=== PATIENT | female | born 1975 | race Caucasian/White ===

== ENCOUNTER → 2017-04-26 09:04 | Outpatient (CLI) | payer BC, SELFPAY ==
--- NOTE | 2017-04-26 | XR_ITS ---
XR foot LT min 3V HISTORY: Left foot pain ORDERING PHYSICIAN: Melany Hanna DPM PATIENT AGE: 42 years COMPARISON: None FINDINGS: Weightbearing views are performed. There is an old healed fracture of the fifth metatarsal distally with good alignment. There is mild pes planus. No acute fracture. No lytic or blastic change or significant degenerative change. IMPRESSION: Mild pes planus with old fifth metatarsal fracture
--- NOTE | 2017-04-26 | XR_ITS ---
XR foot RT min 3V HISTORY: ITS.REASON: LEFT FOOT PAIN ORDERING PHYSICIAN: Melany Hanna DPM PATIENT AGE: 42 years COMPARISON: None FINDINGS: No fracture or dislocation. No lytic or blastic change. There is normal mineralization.. The joint spaces are well-preserved. No significant degenerative/arthritic changes. No erosive changes evident. IMPRESSION: Negative, no acute finding
== END ==
PROVIDERS: PCP Internal Medicine Adolescent Medicine; Visit Provider Podiatrist
DX: M79.672 Pain in left foot (principal)
CPT/HCPCS: 73630

== ENCOUNTER → 2018-10-30 14:54 | Outpatient (POV) | payer BC, SELFPAY | PROVIDERS: Visit Provider Dermatology | DX: Z00.00 Encounter for general adult medical examination without abnormal findings (principal) ==

== ENCOUNTER → 2019-12-31 17:35 | Outpatient (CLI) | payer BC, SELFPAY ==
[2020-01-02 13:43] LABS: Covid-19 Nasal PCR Sendout Lex NOT DETECTED
== END ==
PROVIDERS: PCP Nurse Practitioner Family; Visit Provider Nurse Practitioner Family
DX: Z20.828 Contact with and (suspected) exposure to other viral communicable diseases (principal)
CPT/HCPCS: U0004

== ENCOUNTER 2020-11-27 13:36 | Emergency (ER) | payer OTHER, SELFPAY ==
[2020-11-27 13:42] VITALS: BMI 19.3
--- NOTE | 2020-11-27 13:43 | XR_ITS ---
PROCEDURE: XR HAND LT MIN 3V CLINICAL INDICATION: INJURY Pain COMPARISON: No exams were available for comparison FINDINGS: No fracture or dislocation. No lytic or blastic change. There is normal mineralization. The joint spaces are well-preserved. No significant degenerative/arthritic changes. No erosive changes evident. Other findings:None. IMPRESSION: No acute findings. Dictated by: Gabriele Christiansen MD 11/27/2020 14:27 Gabriele Christiansen MD in [place] 11/27/2020 14:27
[2020-11-27 14:05] VITALS: BP 123/78; PULSE 68; RESP 20; TEMP 36.7; O2SAT 98; BMI 23.0
--- NOTE | 2020-11-27 14:31 | HMH.EDUTC ---
[facility] [place] Disposition Clinical Impression: Hand contusion Qualifiers: Encounter type: initial encounter Laterality: left Qualified Code(s): S60.222A - Contusion of left hand, initial encounter Disposition: Home, Self-Care Condition on Discharge: Good Instructions: Contusion, How To Perform RICE (Rest, Ice, Compress, Elevate), How to Apply an Ebenezer Wrap Additional Instructions: *RICE, Rest the extremity, Ice 15-20 minutes 3-4 times daily, Compress- wear the ebenezer wrap as discussed as much as possible to help reduce swelling and pain, Elevate the extremity when at rest *Ebenezer wrap is for support and help control swelling, use it except in the shower. Be sure that is not to tight but not to loose either *Elevate when resting *Ibuprofen every 6-8 hours as needed for pain an inflammation. If need something more can take Tylenol in between doses of Ibuprofen to help Immediately follow up with your family doctor for new or worsening of symptoms, or no noticeable improvement over the next 3-5 day Referrals: Cristine Patton APRN [Primary Care Provider] - As needed Time of Disposition: 14:36 Medical Decision Making - Keith Inquiry Pt receiving controlled substance: No Kieth was queried for this patient: No Vital Signs: 11/27/20 14:05 Temperature 98.0 F Temperature Source Temporal Artery Scan Pulse Rate [Left Brachial] 68 Respiratory Rate 20 Blood Pressure [Left Arm] 123/78 Blood Pressure Mean [Left Arm] 93 Blood Pressure Source [Left Arm] Automatic Cuff Blood Pressure Position [Left Arm] Sitting 02 Sat by Pulse Oximetry 98 Oxygen Delivery Method Room Air - Radiology Data #1 Image(s): Hand Image Reviewed: Yes I reviewed the patient's radiology image Preliminary Findings: No Fracture Seen [facility] [place] HPI - General Stated complaint: a/o fracture left hand Time Seen by Provider: 11/27/20 14:31 Mode of Arrival: Ambulatory Source of Information: Patient Limitations: No Limitations Description of Symptoms (Recalled from Triage Doc. by RN): PATIENT C/O INJURY TO LEFT HAND AFTER HITTING IT ON A METAL POLE TODAY HEENT Symptoms (Recalled from RN notes): No Resp Symptoms (Recalled from RN notes): No Skin Symptoms (Recalled from RN notes): No MS Symptoms (Recalled from RN notes): Yes Functional Status (Recalled from RN notes): WNL - History of Present Illness Provider Complaint: Patient state that she accidently hit her hand agains a metal pole on treadmill State that she immediatly noticed she had a raised bruised area on the top of her left hand State that she was worried that she may have broken it so she came in - Related Data Home Medications Medication Instructions Recorded Confirmed No Known Home Medications 05/12/19 05/12/19 Allergies Allergy/AdvReac Type Severity Reaction Status Date / Time No Known Allergies Allergy Verified 12/27/17 13:38 - Worker's Comp Is this a Worker's Comp case?: No [facility] History - Hepatitis A Screen Drug use history?: No High risk sexual behaviors?: No History of sexually transmitted infection?: No Currently employed?: No Childcare worker?: No Do you have indoor plumbing?: Yes Do you have electricity?: Yes Attestation statement:: This patient has been screened for Hepatitis A risk factors. I have reviewed the patient's past medical history: Yes Medical History: Reports:: Anxiety Denies:: Aneurysm, Arrhythmia, Asthma, Atrial Fibrillation, Cancer, Congestive Heart Failure, Chronic Obstructive Pulmonary Disease (COPD), Coronary Artery Disease, Cerebrovascular Accident, Deep Vein Thrombosis, Dementia, Diabetes Mellitus Type 1, Diabetes Mellitus Type 2, Gastroesophageal Reflux Disease(GERD), Gastrointestinal Bleed, Hyperlipidemia, Hypertension, Internal Pacemaker, Lung Disease, Kidney Stones, Migraine, MRSA, Myocardial Infarction, Osteoporosis, Peripheral Artery Disease, Pulmonary Embolism, Renal Disease, Seizures, Supraventricular Tachycardia, Transient Ischemic Attacks (TIA)
[2020-11-27 14:37] VITALS: BP 123/78; PULSE 68; RESP 20; TEMP 36.7; O2SAT 98
== END 2020-11-27 14:42 | disposition home or self-care (01) ==
PROVIDERS: Emergency Provider Nurse Practitioner; PCP Nurse Practitioner Family
DX: S60.222A Contusion of left hand, initial encounter (principal); W22.8XXA Striking against or struck by other objects, initial encounter; Y92.89 Other specified places as the place of occurrence of the external cause
CPT/HCPCS: 73130; 99202; G0463

== ENCOUNTER → 2020-12-07 15:13 | Outpatient (CLI) | payer OTHER, SELFPAY ==
[2020-12-07 17:04] LABS: Basophils # 0.1 K/mm3 (0-0.2); Basophils % 1.3 % (0.1-2.0); Eosinophils # 0.1 K/mm3 (0.0-0.4); Eosinophils % 1.8 % (0.1-12.0); Hematocrit 39.3 % (37.0-47.0); Hemoglobin 12.9 g/dL (12.2-16.2); Lymphocytes # 2.5 K/mm3 (0.7-4.5); Mean Corpuscular HGB Conc 32.9 g/dL (31.8-35.4); Mean Corpuscular Hemoglobin 30.9 pg (27.0-31.2); Mean Corpuscular Volume 93.9 fl (81-99); Mean Platelet Volume 8.2 fl (7.4-10.4); Monocytes # 0.4 K/mm3 (0.1-1.0); Monocytes % 6.2 % (1.7-9.3); Neutrophils # 3.6 K/mm3 (1.8-7.8); Neutrophils % 53.6 % (37.0-80.0); Platelet Count 291 K/mm3 (142-424); Red Blood Count 4.19 M/mm3 (4.20-5.40); White Blood Count 6.7 K/mm3 (4.8-10.8)
[2020-12-07 17:59] LABS: Chloride 104 mmol/L (98-107); Potassium 4.5 mmoL/L (3.5-5.1); Sodium 140 mmol/L (136-145)
[2020-12-07 18:02] LABS: Alanine Aminotransferase 22 U/L (12-78); Albumin Level 4.7 g/dl (3.5-5.0); Albumin/Globulin Ratio 1.6 (1.1-1.8); Alkaline Phosphatase 57 U/L (38-126); Anion Gap 14.5 mEq/L (5-15); Aspartate Amino Transferase 29 U/L (14-36); Bilirubin,Total 0.3 mg/dl (0.2-1.3); Blood Urea Nitrogen 15 mg/dl (7-17); Calcium 9.2 mg/dl (8.4-10.2); Carbon Dioxide 26 mmol/L (22.0-30.0); Estimated Glomerular Filt Rate 108 ml/min (>60); GFR (African American) 131 ML/MIN (>60); Glucose 83 mg/dl (74-100); Total Protein,Serum 7.7 g/dl (6.3-8.2)
[2020-12-07 18:33] LABS: Thyroid Stimulating Hormone 0.74 uIU/mL (0.465-4.68)
[2020-12-07 18:37] LABS: Ferritin 8.23 ng/ml (6.24-137)
[2020-12-07 20:07] LABS: 25-OH Vitamin D, Total 42.3 ng/mL (30-100)
[2020-12-07 20:20] LABS: Vitamin B12 765 pg/mL (239-931)
== END ==
PROVIDERS: Visit Provider Nurse Practitioner Family
DX: R53.81 Other malaise (principal)
CPT/HCPCS: 36415; 80053; 82306; 82607; 82728; 84443; 85025

== ENCOUNTER 2021-01-19 20:10 | Emergency (ER) | payer OTHER, SELFPAY ==
[2021-01-19 20:12] VITALS: BP 120/84; PULSE 57; RESP 16; TEMP 36.8; O2SAT 100; BMI 22.4
--- NOTE | 2021-01-19 20:33 | CT_ITS ---
PROCEDURE INFORMATION: Exam: CT Head Without Contrast Exam date and time: 01/19/21 08:33 PM Age: 45 years old Clinical indication: Injury or trauma; Fall; Blunt trauma (contusions or hematomas); Consciousness not specified TECHNIQUE: Imaging protocol: Computed tomography of the head without contrast. 3D rendering (Not supervised by radiologist): MIP and/or 3D reconstructed images were created by the technologist. Radiation optimization: All CT scans at this facility use at least one of these dose optimization techniques: automated exposure control; mA and/or kV adjustment per patient size (includes targeted exams where dose is matched to clinical indication); or iterative reconstruction. COMPARISON: No relevant prior studies available. FINDINGS: Brain: Normal. No hemorrhage. Unremarkable white matter. No mass effect. Cerebral ventricles: No ventriculomegaly. Paranasal sinuses: Visualized sinuses are unremarkable. No fluid levels. Mastoid air cells: Visualized mastoid air cells are well aerated. Bones/joints: Unremarkable. No acute fracture. Soft tissues: Unremarkable. IMPRESSION: No acute intracranial abnormality.
--- NOTE | 2021-01-19 20:33 | CT_ITS ---
PROCEDURE INFORMATION: Exam: CT Cervical Spine Without Contrast Exam date and time: 01/19/21 08:33 PM Age: 45 years old Clinical indication: Injury or trauma; Fall; Blunt trauma TECHNIQUE: Imaging protocol: Computed tomography images of the cervical spine without contrast. Radiation optimization: All CT scans at this facility use at least one of these dose optimization techniques: automated exposure control; mA and/or kV adjustment per patient size (includes targeted exams where dose is matched to clinical indication); or iterative reconstruction. COMPARISON: CT HEAD/BRAIN WO CON 01/19/21 09:07 PM FINDINGS: Vertebrae: No acute fracture. Normal alignment. C2-C3: No significant disc protrusion. No severe spinal canal stenosis. No significant neural foraminal narrowing. C3-C4: No significant disc protrusion. No severe spinal canal stenosis. No significant neural foraminal narrowing. C4-C5: No significant disc protrusion. No severe spinal canal stenosis. No significant neural foraminal narrowing. C5-C6: Disc space narrowing. Posterior osteophyte. Mild disc protrusion. No severe spinal canal stenosis. No significant neural foraminal narrowing. C6-C7: No significant disc protrusion. No severe spinal canal stenosis. No significant neural foraminal narrowing. C7-T1: No significant disc protrusion. No severe spinal canal stenosis. No significant neural foraminal narrowing. Soft tissues: Unremarkable. Lungs: Lung apices are normal. IMPRESSION: 1. No acute traumatic findings. 2. Disc space narrowing C5-C6 with posterior osteophyte.
--- NOTE | 2021-01-19 21:03 | HMH.EDHA ---
ED Disposition Clinical Impression: Whiplash injuries Qualifiers: Encounter type: initial encounter Qualified Code(s): S13.4XXA - Sprain of ligaments of cervical spine, initial encounter Concussion Qualifiers: Encounter type: initial encounter Loss of consciousness presence/duration: with LOC of unspecified duration Qualified Code(s): S06.0X9A - Concussion with loss of consciousness of unspecified duration, initial encounter Disposition: Home, Self-Care Condition on Discharge: Good Instructions: DI for Neck Pain, DI for Concussion Additional Instructions: see pcp for follow up Referrals: Cristine Patton APRN [Primary Care Provider] - - Critical Care Critical Care Time: No Attestation: On 01/19/21, the high probability of a clinically significant, sudden or life threatening deterioration of the following system(s) required my full and direct attention, intervention and personal management. The time I documented below is in addition to time spent performing reported procedures but includes the following listed in this critical care notation. Medical Decision Making - Medical Records Medical records reviewed: Yes: I reviewed the patient's medical records. - Keith Inquiry Pt receiving controlled substance: No Vital Signs: 01/19/21 20:12 Temperature 98.2 F Temperature Source Oral Pulse Rate [Left] 57 L Respiratory Rate 16 Blood Pressure [Right Arm] 120/84 Blood Pressure Mean [Right Arm] 96 Blood Pressure Source [Right Arm] Automatic Cuff Blood Pressure Position [Right Arm] Sitting 02 Sat by Pulse Oximetry 100 - Lab Data Lab results reviewed: Yes: I reviewed the patient's lab results. Orders (Tests/Meds): ED MEDICATIONS Discontinued Medications Generic Name Dose Route Start Last Admin Trade Name Josr PRN Reason Stop Dose Admin Ondansetron HCl 4 mg 01/19/21 21:05 Ondansetron 4mg/5ml Tracy Udc PO 01/19/21 21:06 ONCE ONE Ondansetron HCl 4 mg 01/19/21 21:08 01/19/21 21:09 Ondansetron 4mg Odt SL 01/19/21 21:09 4 mg ONCE ONE Administration - CT Data CT Scan: Head, C-Spine Time Received: 22:[address] Reviewed: Yes: I have viewed the radiologist's interpretation Preliminary Findings: No Fracture Seen Medical Decision Narrative: has concussion syndrome with stable exam and xrays Headache HPI - General Chief Complaint: Neck Pain/Injury Stated Complaint: AO 01/19 something fell on head Time Seen by Provider: 01/19/21 21:03 Mode of Arrival: Ambulatory Source of Information: Patient, Medical Record Limitations: No Limitations Description of Symptoms (Recalled from ER Triage Doc. by RN): pt reports having a large piece of plywood fall on her head this morning at 11. since then she is having pain and nausea. no LOC no reporte neuro changes and increasing pain. - History of Present Illness HPI Narrative: pt with acute head injury this am with persistent jimenez and nausea w/o sz of focal changes Complaint: headache Onset (ago): hour(s) Onset description: other (post trauma ) Location: diffuse Severity: moderate Context: recent head injury Associated symptoms: nausea Treatments prior to arrival: acetaminophen, ibuprofen - Related Data Home Medications Medication Instructions Recorded Confirmed No Known Home Medications 05/12/19 05/12/19 Allergies Allergy/AdvReac Type Severity Reaction Status Date / Time No Known Allergies Allergy Verified 12/27/17 13:[address] [facility] History - Hepatitis A Screen Drug use history?: No High risk sexual behaviors?: No History of sexually transmitted infection?: No Currently employed?: No Childcare worker?: No Do you have indoor plumbing?: Yes Do you have electricity?: Yes Attestation statement:: This patient has been screened for Hepatitis A risk factors. I have reviewed the patient's past medical history: Yes Medical History: Reports:: Anxiety Denies:: Aneurysm, Arrhythmia, Asthma, Atrial Fibrillation, Cance
[2021-01-19 22:04] VITALS: BP 120/84; PULSE 58; RESP 16; TEMP 36.8
== END 2021-01-19 22:10 | disposition home or self-care (01) ==
PROVIDERS: Emergency Provider Emergency Medicine; PCP Nurse Practitioner Family
DX: S06.0X9A Concussion with loss of consciousness of unspecified duration, initial encounter (principal); S13.4XXA Sprain of ligaments of cervical spine, initial encounter; W22.8XXA Striking against or struck by other objects, initial encounter; Y92.019 Unspecified place in single-family (private) house as the place of occurrence of the external cause; F41.9 Anxiety disorder, unspecified
CPT/HCPCS: 70450; 72125; 99282

== ENCOUNTER → 2021-08-26 15:36 | Outpatient (CLI) | payer OTHER, SELFPAY ==
--- NOTE | 2021-08-26 15:42 | XR_ITS ---
FINAL REPORT CLINICAL HISTORY: (LYMPHADENOPATHY) OF RIGHT CERVICAL REGION FINDINGS: TWO-VIEW CHEST The heart size is normal. The mediastinum is normal. The lungs are clear. There is no pneumothorax. IMPRESSION: No acute cardiopulmonary process. Reviewed, Interpreted and Dictated by Peter Aguayo III, MD Transcribed by Nathalia Young Authenticated by Peter Aguayo III, MD on 08/26/2021 04:46:49 PM [facility]
== END ==
PROVIDERS: PCP Nurse Practitioner Family; Visit Provider Nurse Practitioner Family
DX: R59.0 Localized enlarged lymph nodes (principal)
CPT/HCPCS: 71046

== ENCOUNTER → 2022-09-27 08:04 | Outpatient (POV) | payer OTHER, SELFPAY | PROVIDERS: Visit Provider Dermatology | DX: Z00.00 Encounter for general adult medical examination without abnormal findings (principal) ==

== ENCOUNTER → 2022-10-04 07:50 | Outpatient (POV) | payer OTHER, SELFPAY | PROVIDERS: Visit Provider Dermatology | DX: Z00.00 Encounter for general adult medical examination without abnormal findings (principal) ==

== ENCOUNTER 2023-06-07 14:58 | Outpatient (CLI) | payer BC, SELFPAY ==
--- NOTE | 2023-06-07 14:59 | US_ITS ---
PROCEDURE: US TRANSVAGINAL CLINICAL INDICATION: dub COMPARISON: No exams were available for comparison FINDINGS: Transvaginal sonographic images of the pelvis were obtained. UTERUS: 8.6 cm x 4.8 cmx 3.9 cm anteverted with a combined endometrial thickness of 8.7mm. There are multiple nabothian cysts in the cervix. The largest measures 0.67 cm. There are least 3 small cystic areas adjacent to the endometrium in the posterior uterus. The largest measures 0.4 cm. LEFT OVARY: 4.0cmx3.8 cmx1.3cm with a volume of 10.5ml. There is a follicle measuring 1.2 cm x 1.2 cm x 0.8 cm. RIGHT OVARY: 3.5 cmx 2.5 [id number] with a volume of 10.9ml. There are multiple follicles. The largest measures 1.6 cm x 1.7 cm x 1.3 cm. Both ovaries are seen and appear normal. Doppler flow to both ovaries are seen. There is no fluid in the cul-de-sac. IMPRESSION: 1. Anteverted uterus normal in shape and size. 2. There are multiple small nabothian cysts within the cervix. 3. There are at least 3 small 4 mm cystic areas adjacent to the posterior endometrium. Possible adenomyosis. 4. Both ovaries are seen and appear normal. They both have follicles. 5. No fluid in the cul-de-sac. Dictated by: Soy Mosqueda MD 06/07/2023 15:43 Soy Mosqueda MD in [place] 06/07/2023 15:43
== END 2023-06-07 23:59 ==
LOC: RAD 14:59
PROVIDERS: PCP Nurse Practitioner Family; Visit Provider Obstetrics & Gynecology
DX: N93.8 Other specified abnormal uterine and vaginal bleeding (principal)
CPT/HCPCS: 76830

== ENCOUNTER 2023-08-02 08:58 | Outpatient (CLI) | payer BC, SELFPAY ==
--- NOTE | 2023-08-02 09:04 | CT_ITS ---
APPROVED REPORT Educational Assistant Teacher: CLINICAL INDICATION Chest Pain TECHNIQUE Image Acquisition: A 128 slice MDCT scanner ([employer] Zelosporta View) was used for data acquisition. A noncontrast coronary calcium scan was performed. A CT attenuation threshold of 130 Hounsfield units (HU) was used for the detection of calcium in contiguous voxels of 1 sq mm in area to be counted as individual lesions. Bolus tracking in the ascending aorta with a threshold of 180 HU was performed. Immediately afterwards, ECG synchronized cardiac CT was then performed from the cardiac base to apex using retrospective gating with ECG tube current modulation. A total of 85 mL of Isovue 370 mg/mL contrast medium was administered at 5 mL/sec followed by a saline flush using a biphasic injection protocol. A tube voltage of 120 KVp was used. The patient received the following medications prior to the cardiac CT. 0.4 mg of sublingual nitroglycerin The average heart rate at the time of acquisition was 57 bpm and regular. Image Reconstruction Transaxial images were reconstructed at 0.67 mm slide thickness. Data was reviewed interactively on an advanced workstation capable of 2 and 3-dimensional displays in all conventional reconstruction formats, including multiplanar reformations, maximum intensity projections, curved multiplanar reformations, and volume rendered reconstructions. When applicable, selected routine images describing the relevant coronary anatomy and pathology were saved and sent to PACS. Complications None Technical Quality Overall image quality was good. Coronary artery opacification was adequate. Total DLP (Dose-Length Product) is 1197.0 mGy-cm. The reported value represents the total of one or more individual components during the CT acquisition of this date and at this time, and as such, the same value may appear in more than one CT report depending on the interpreting/reporting physicians. COMPARISON None FINDINGS CT Coronary Calcium Scoring LMA (Left Main Artery) = 0 LAD (Left Anterior Descending) = 0 LCX (Left Coronary Circumflex) = 0 RCA (Right Coronary Artery) = 0 Total Calcium Score = 0 using the AJ-130 method. The interpretation of the calcium heart score is based on the following continuum*: 0 = no calcified plaque detected (risk of coronary artery disease is very low ??? less than 5%) 1-10 = calcium detected in extremely minimal levels (risk of coronary diseases is still low ??? less than 10%) 11-100 = mild levels of plaque detected with certainty (mild or minimal narrowing of heart arteries is likely) 101-400 = definite,at least moderate levels of plaque detected (relatively high risk of a heart attack within 3-5 years) >401-999 = extensive levels of plaque detected (high risk of heart attack, high levels of vascular disease are present, high likelihood of at least one significant coronary narrowing) *The calcium heart score quantifies the burden of coronary calcification/plaque in the coronary arteries. The calcium heart score is not able to evaluate the presence or burden of non-calcified (i.e. soft) plaque. There is no identifiable calcification in the aortic valve, mitral annulus or mitral valve, pericardium, or myocardium. Coronary CT Angiography The coronary arterial system is right dominant. Quantitative Stenosis Grading: Left Main (LM): The left main originates normally from the left sinus of Valsalva. The LM bifurcates into the left anterior descending artery and left circumflex artery. The LM is patent with no evidence of atherosclerosis. Left Anterior Descending (LAD) and Diagonal Branches: The LAD gives off 2 diagonal branches. The LAD and its branches are patent with no evidence of atherosclerosis. There is no evidence of LAD-myocardial bridge. Left Circumflex (LCX) and Obtuse Marginals (OM): The LCX gives off 1 Obtuse Marginal (OM) branch. The LCX and its branches are patent with no evidence of atherosclerosis. Right Coronary Artery (RCA): The RCA originates normally from the right sinus of Valsalva. The RCA gives off a posterior descending artery (PDA) and posterolateral (PL) branches. The RCA and its branches are patent with no evidence of atherosclerosis. Non-Coronary Cardiac Findings: Analysis of the left ventricular (LV) structure and function was performed after 3-D reconstruction of the LV from axial images, with user-corrected automatic contouring for assessment of LV volumes and user-defined reconstruction from oblique planes for measurement of 3-D cardiac structure and function. -The left ventricle systolic function is normal. -There is no left atrial appendage filling defect. Two right pulmonary veins and two left pulmonary veins drain normally into the left atrium. -No pericardial thickening or calcification. -Central and branch pulmonary arteries in the [id number] are unremarkable. -Thoracic aorta within the visualized thoracic aortic-branches in the [id number] is unremarkable. Extracardiac Structures No significant extra-cardiac findings. Note, however, that this study is focused on the cardiac findings. IMPRESSION -Absence of coronary calcification with an Agatston score = 0 using the AJ-130 method. -No evidence of significant flow-limiting atherosclerosis of the coronary arteries. -No evidence of coronary anomalies or myocardial bridges. -CAD-RADS 0. Management recommendations per ACC/AHA guidelines*, as clinically appropriate. *Recommendations: CAD RADS 0: Reassurance. Consider non-atherosclerotic causes of chest pain. CAD RADS 1: Consider non-atherosclerotic causes of chest pain. Consider preventive therapy and risk factor modification. CAD RADS 2: Consider non-atherosclerotic causes of chest pain. Consider preventive therapy and risk factor modification, particularly for patients with nonobstructive plaque in multiple segments. CAD RADS 3: Consider further functional testing. Consider symptom-guided anti-ischemic and preventive pharmacotherapy as well as risk factor modification per published guideline statements. CAD RADS 4A: Consider further functional testing or invasive coronary angiography with revascularization per published guideline statements. Consider symptom-guided anti-ischemic and preventive pharmacotherapy as well as risk factor modification per published guideline statements. CAD RADS 4B: Invasive coronary angiography recommended with revascularization per published guideline statements. Consider symptom-guided anti-ischemic and preventive pharmacotherapy as well as risk factor modification per published guideline statements. CAD RADS 5: Consider invasive angiography and/or viability assessment with revascularization per published guideline statements. Consider symptom-guided anti-ischemic and preventive pharmacotherapy as well as risk factor modification per published guideline statements. CRITICAL RESULT None COMMUNICATION Per this written report The coronary and cardiac findings of this CCTA were reviewed, reported, and signed by Steve Muñoz MD (Building Carpenter) Conclusion Electronically signed by : Clemencia Muñoz MD 08/03/2023 13:06:34
[2023-08-02 09:13] VITALS: BMI 22.8
[2023-08-02 09:20] VITALS: BP 109/59; PULSE 63; RESP 18; TEMP 36.5; O2SAT 95
[2023-08-02 09:44] LABS: Urine Pregnancy, HCG Qual. Negative (Negative)
[2023-08-02 09:52] LABS: Blood Urea Nitrogen 18 mg/dl (7-17); Creatinine Clearance Estimated 106 mL/min (50-200); Estimated Glomerular Filt Rate 107 ml/min (>60); GFR (African American) 129 ML/MIN (>60)
[2023-08-02 10:00] VITALS: BP 112/71; PULSE 61; RESP 16; O2SAT 100
[2023-08-02 10:03] VITALS: BP 120/63; PULSE 68; RESP 16; O2SAT 100
[2023-08-02 10:09] VITALS: BP 103/47; PULSE 62; RESP 16; O2SAT 100
[2023-08-02 10:12] VITALS: BP 95/51; PULSE 57; RESP 16; O2SAT 100
[2023-08-02 10:20] VITALS: BP 106/67; PULSE 59; RESP 16; O2SAT 100
[2023-08-02] MEDS: 0.9 % SODIUM CHLORIDE 50 ML VIAL IV (10:20)
[2023-08-02] MEDS: IOPAMIDOL-370 (76%);100ML BOTTLE 85 ML IV (10:20)
== END 2023-08-02 10:25 | disposition home or self-care (01) ==
PROVIDERS: PCP Internal Medicine Adolescent Medicine; Visit Provider Internal Medicine Adolescent Medicine
DX: R07.9 Chest pain, unspecified (principal); Z82.49 Family history of ischemic heart disease and other diseases of the circulatory system
CPT/HCPCS: 75571; 75574; 81025; 82565; 84520; Q9967

== ENCOUNTER 2023-09-20 08:52 | Outpatient (CLI) | payer BC, SELFPAY ==
--- NOTE | 2023-09-20 08:56 | XR_ITS ---
FINAL REPORT CLINICAL HISTORY: FAMILY H/O OSTEOPORISIS,H/O WRIST FX COMPARISON: None FINDINGS: Using L1-4, the bone mineral density of the spine is 0.924 g/cm2, corresponding to T-score of -1.1. Using the left hip, the bone mineral density of the femoral neck is 0.795 g/cm2, corresponding to a T-score of -0.5. NOTE: T-score: Standard deviation compared with peak bone mass of young adult mean. *Following the recommendations of the International Society of Bone densitometry, classification of hip BMD is based on the lower of two T-scores; total hip or femoral neck. IMPRESSION: Low bone mineral density in the lumbar spine, consistent with osteopenia. Normal bone mineral density of the left femoral neck. Reviewed, Interpreted and Dictated by Jacoby Osman MD Transcribed by oMhini Vieyra Authenticated and [facility]
== END 2023-09-20 23:59 | disposition home or self-care (01) ==
LOC: RAD 08:52
PROVIDERS: PCP Internal Medicine Adolescent Medicine; Visit Provider Internal Medicine Adolescent Medicine
DX: Z13.820 Encounter for screening for osteoporosis (principal); Z82.62 Family history of osteoporosis; Z87.81 Personal history of (healed) traumatic fracture; M85.89 Other specified disorders of bone density and structure, multiple sites
CPT/HCPCS: 77080

== ENCOUNTER 2024-01-12 13:02 | Outpatient (CLI) | payer BC, SELFPAY ==
--- NOTE | 2024-01-12 13:10 | XR_ITS ---
FINAL REPORT CLINICAL HISTORY: foot pain c/o pain at 5th metatarsal COMPARISON: 04/26/2017 FINDINGS: RIGHT FOOT 3 views of the right foot were obtained. There is no acute fracture or dislocation. Visualized joint spaces are normally aligned. Soft tissues are unremarkable. IMPRESSION: No acute bony abnormality. Reviewed, Interpreted and Dictated by Jacoby Osman MD Transcribed by Licha Tan Authenticated and . [facility]
--- NOTE | 2024-01-12 13:10 | XR_ITS ---
FINAL REPORT CLINICAL HISTORY: foot pain COMPARISON: 04/26/2017 FINDINGS: LEFT FOOT Three views of the left foot demonstrate no acute fracture or dislocation. There is old healed fracture deformity of the 5th metatarsal. The visualized joint spaces are normally aligned. The soft tissues are unremarkable. IMPRESSION: No acute bony abnormality. Reviewed, Interpreted and Dictated by Jacoby Osman MD Transcribed by Licha Tan Authenticated and [facility]
== END 2024-01-12 23:59 | disposition home or self-care (01) ==
LOC: RAD 13:04
PROVIDERS: PCP Internal Medicine Adolescent Medicine; Visit Provider Podiatrist
DX: M79.671 Pain in right foot (principal); M79.672 Pain in left foot
CPT/HCPCS: 73630

== ENCOUNTER 2024-04-25 16:45 | Outpatient (CLI) | payer BC, SELFPAY | END 2024-04-25 23:59 | disposition home or self-care (01) | LOC: LAB.DROPOF 16:46 | PROVIDERS: PCP Obstetrics & Gynecology; Visit Provider Obstetrics & Gynecology | DX: N76.0 Acute vaginitis (principal); N39.0 Urinary tract infection, site not specified; B95.4 Other streptococcus as the cause of diseases classified elsewhere; B95.7 Other staphylococcus as the cause of diseases classified elsewhere | CPT/HCPCS: 87070; 87077; 87186; 87205 ==

== ENCOUNTER 2024-08-23 14:01 | Outpatient (CLI) | payer BC, SELFPAY ==
--- NOTE | 2024-08-23 14:00 | US_ITS ---
PROCEDURE: US TRANSVAGINAL CLINICAL INDICATION: Needs for AUB COMPARISON: US US TRANSVAGINAL from 06/07/2023 FINDINGS: Transvaginal sonographic images of the pelvis were obtained. UTERUS: 8.4cm x 4.3cmx 3.8 cm anteverted with a combined endometrial thickness of 7.2mm. There is a multi cystic area in the lower uterine segment/upper cervix that could be a collection of mucus from the nabothian cysts present. There continue be small cystic areas adjacent to the endometrium that could represent adenomyosis. LEFT OVARY: 2.9 cmx2.9 cmx1.7cm with a volume of 7.5ml. There are 2 small follicles within the left ovary. One follicle appears to be a collapsing corpus luteum that measures 1.4 cm. RIGHT OVARY: 2.3cmx 1.1cmx2.1cm with a volume of 2.8ml. Both ovaries are seen and appear normal. Doppler flow to both ovaries are seen. There is no fluid in the cul-de-sac. IMPRESSION: 1. Anteverted uterus normal in shape and size. In the endometrium appears normal and measures 7.2 mm. Adjacent to the endometrium there are small cystic areas that could represent 2. There is a multi-cystic hyperechoic area in the lower uterine segment/upper cervix that is likely a collection of nabothian cysts and mucus. 3. Both ovaries are seen and appear normal. The left ovary contains follicles and likely a corpus luteum. 4. No fluid in the cul-de-sac. Dictated by: Soy Mosqueda MD 08/24/2024 09:09 Soy Mosqueda MD in OV 08/24/2024 09:09
--- OUTSIDE RECORDS SUMMARY | 2024-08-23 14:04 | XMS_ITS | Data Portability ---
Author Organization [facility] Address [address] [facility] [place] [address] Assessment No assessment recorded. Plan of Treatment Reminders Order Date Submit Date Provider Last Modified By Organization Details Last Modified Time Details Appointments None recorded. Lab surgical pathology study 2021 022 [facility], [address] [place] [address], [address], 11:05:02 ferritin, serum or plasma 2020 [facility], [address] [place] [address], [address], 17:36:41 iron + total iron-bindin g capacity (TIBC), serum 2020 021 [facility], [address] [place] [address], [address], 17:36:38 vitamin B12 + folate, serum or blood 2020 [facility], [address] [place] [address], [address], 1 17:36:10 CBC w/ auto diff 2020 [facility], [address] [place] [address], [address], 17:16:52 CMP, serum or plasma 2020 [facility], [address] [place] [address], [address], 1 17:36:40 T4, free, serum 2020 [facility], [address] [place] [address], [address], 1 17:36:42 TSH, serum or plasma 2020 021 [facility], [address] [place] [address], [address], 1 17:36:45 vitamin D, 25-hydroxy, total, serum 2020 [facility], [address] [place] [address], [address], 1 17:36:53 magnesium, QN, serum or plasma 2020 021 [facility], [address] [place] [address], [address], 1 17:36:44 cytology, vaginal/cer vical 2019 [facility], [address] [place] [address], [address], 0 12:21:48 HPV DNA, high-risk 2019 020 [facility], [address] [place] [address], [address], 0 17:24:25 Referral None recorded. Procedures None recorded. Surgeries None recorded. Imaging None recorded. Medication Orders topiramate 25 mg tablet 2020 [id number], [address], [id number], 2 09:22:45 Patient TargetsNo targets recorded. Patient Instructions Encounter Date Encounter Id Patient Instructions Last Modified By Organization Details Last Modified Time 06/27/2019 [id number] learning about cervical cancer screening Not available 06/27/2019 12:33:41 44 yo here today for annual exam Normal exam, pap with HPV cotesting - if normal, next pap in 3 years Mammo up to date - next one is scheduled - Discussed perimenopause - if any changes in bleeding or pain, let us know RTC 1 year annual, PRN Not available 06/27/2019 12:36:13 Reason for Referral None Reported. Results Created Date Observation Date Name Description Value Unit Range Abnormal Flag Note LastModifiedBy Organization Detail LastModifiedTime 06/27/1907/01/2019 HPV DNA, high- risk high risk HPV Not Detect ed not detect ed normal This test was perfo rmed using the APTIM A HPV Assay ([employer] . This assay detec ts E6/E7 viral messe nger RNA (mRNA ) from 14 high- risk HPV types (16,1 8,31, 33,35 ,39,4 5,51, 52,56 ,58,5 9,66, 68). The gideon tical perfo rmanc e joseph cteri stics of this assay have been deter mined by [facility]. The modif icati ons have not been clear ed or appro luzmaria by the FDA. This assay has been valid ated pursu ant to the CLIA regul ation s and is used for clini dev purpo ses. TEST PERFO RMED AT: [facility] [place] [address] [id number] WALE Wolf MD Not Available [facility] [address] [facility], [place], [address], 07/01/2019 17:24:25 06/27/1906/27/2019 cytol ogy, vagin al/ce rvica l Pap smear SEE BELOW Depar tment of Patho logy GYNEC OLOGI DEV CYTOL OGY REPOR T NAME: MARIELENA [place] PATHO LOGY NO.: [id number] Copy to: SOUR E OF SPECI MEN: CERVI DEV/E NDOCE RVICA L-THI N PREP RELEV ANT HISTO RY: No LMP given . Comme nt: HPV CO-TE STING RETUR N IN 3 YRS IF PARVIN L SPECI MEN ADEQU ACY SATIS FACTO RY FOR EVALU ATION . ENDOC ERVIC AL/TR ANSFO RMATI ON ZONE COMPO NENT PRESE NT GENER AL CATEG ORIZA TION OTHER , NEGAT TRINITY FOR INTRA EPITH ELIAL LESIO N OR MALIG KAYLEN . ( SEE DESCR IPTIV E DIAGN OSIS) DESCR IPTIV E DIAGN OSIS OTHER ENDOM ETRIA L CELLS SEEN IN A WOMAN GREAT ER THAN 40 YEARS OF AGE ENDOM ETRIA L CELLS AFTER AGE 40, PARTI CULAR LY OUT OF PHASE OR AFTER MENOP AUSE, MAY BE ASSOC IATED WITH BENIG N ENDOM ETRIU M, HORMO NAL ALTER ATION S, AND LESS COMMO NLY, ENDOM ETRIA L ABNOR MALIT IES. RELAT ED LABOR ATORY RESUL TS Test Name Resul t Colle cted D and T HIGH RISK HPV Not Detec janette 020 13:[address], CT( CP) Pau d Out Date: 07/02 12:20 Cervi dev/v agina l cytol ogy is a scree huan test with a recog nized false negat trinity rate. New techn ologi es may decre ase, but will not elimi andreia false negat trinity resul ts. Regul ar cytol ogy scree huan is recom freda d to minim ize false negat trinity resul ts. The ThinP rep(R ) Imagi ng syste m is used to nathan t in prima ry cervi dev cance r scree huan of ThinP rep(R ) Pap test slide s. Page 1 of [address] Not [address] [facility] [facility], [place], [address], 07/03/2019 12:21:48 12/17/19 21 12/16/2020 COMPL ETE BLOOD COUNT white blood cells 5.2 K/uL 3.8-10 .8 normal Not Available [facility] [address] [place] [address], [address], 12/16/2020 17:16:52 12/17/19 21 12/16/2020 COMPL ETE BLOOD COUNT red blood cells 4.02 M/uL 3.80-5 .20 normal Not Available [facility] [address] [place] [address], [address], 12/16/2020 17:16:52 12/17/19 21 12/16/2020 COMPL ETE BLOOD COUNT hemoglobin 13.0 g/dL 12.0-1 6.0 normal Not Available [facility] [address] [place] [address], [address], 12/16/2020 17:16:52 12/17/19 21 12/16/2020 COMPL ETE BLOOD COUNT hematocrit 37.5 % 35.0-4 7.0 normal Not Available [facility] [address] [place] [address], [address], 12/16/2020 17:16:52 12/17/19 21 12/16/2020 COMPL ETE BLOOD COUNT MCV 93 fL 80-100 normal Not Available [facility] [address] [place] [address], [address], 12/16/2020 17:16:52 12/17/19 21 12/16/2020 COMPL ETE BLOOD COUNT MCH 32 pg 26-35 normal Not Available [facility] [address] [place] [address], [address], 12/16/2020 17:16:52 12/17/19 21 12/16/2020 COMPL ETE BLOOD COUNT MCHC 35 g/dL 32-36 normal Not Available [facility] [address] [place] [address], [address], 12/16/2020 17:16:52 12/17/19 21 12/16/2020 COMPL ETE BLOOD COUNT RDW 12.8 % 11.0-1 5.0 normal Not Available [facility] [address] [place] [address], [address], 12/16/2020 17:16:52 12/17/19 21 12/16/2020 COMPL ETE BLOOD COUNT MPV 7.1 fL 6.2-10 .5 normal Not Available [facility] [address] [place] [address], [address], 12/16/2020 17:16:52 12/17/19 21 12/16/2020 COMPL ETE BLOOD COUNT platelet count 268 K/uL 130-40 0 normal Not Available [facility] [address] [place] [address], [address], 12/16/2020 17:16:52 12/17/19 21 12/16/2020 COMPL ETE BLOOD COUNT neutrophil,a bsolute 2.4 K/uL 1.6-8. 4 normal Not Available [facility] [address] [place] [address], [address], 12/16/2020 17:16:52 12/17/19 21 12/16/2020 COMPL ETE BLOOD COUNT lymphocyte,a bsolute 2.1 K/uL 0.4-5. 1 normal Not Available [facility] [address] [place] [address], [address], 12/16/2020 17:16:52 12/17/19 21 12/16/2020 COMPL ETE BLOOD COUNT monocyte,abs olute 0.6 K/uL 0.0-1. 2 normal Not Available [facility] [address] [place] [address], [address], 12/16/2020 17:16:52 12/17/19 21 12/16/2020 COMPL ETE BLOOD COUNT eosinophil,a bsolute 0.1 K/uL 0.0-0. 8 normal Not Available [facility] [address] [place] [address], [address], 12/16/2020 17:16:52 12/17/19 21 12/16/2020 COMPL ETE BLOOD COUNT basophil,abs olute 0.0 K/uL 0.0-0. 3 normal Not Available [facility] [address] [place] [address], [address], 12/16/2020 17:16:52 12/17/19 21 12/16/2020 COMPL ETE BLOOD COUNT % neutrophils 45.3 % 42.0-7 8.0 normal Not Available [facility] [address] [place] [address], [address], 12/16/2020 17:16:52 12/17/19 21 12/16/2020 COMPL ETE BLOOD COUNT % lymphocytes 39.7 % 11.0-4 7.0 normal Not Available [facility] [address] [place] [address], [address], 12/16/2020 17:16:52 12/17/19 21 12/16/2020 COMPL ETE BLOOD COUNT % monocytes 12.4 % 0.0-11 .0 high Not Available [facility] [address] [place] [address], [address], 12/16/2020 17:16:52 12/17/19 21 12/16/2020 COMPL ETE BLOOD COUNT % eosinophils 2.1 % 0.0-7. 0 normal Not Available [facility] [address] [place] [address], [address], 12/16/2020 17:16:52 12/17/19 21 12/16/2020 COMPL ETE BLOOD COUNT % basophils 0.5 % 0.0-3. 0 normal Not Available [facility] [address] [place] [address], [address], 12/16/2020 17:16:52 12/17/19 21 12/16/2020 COMPL ETE BLOOD COUNT nucleated red cells 0.0 % 0.0-0. 9 normal Not Available [facility] [address] [place] [address], [address], 12/16/2020 17:16:52 12/17/19 21 12/16/2020 COMPL ETE BLOOD COUNT nucleated RBCs, absolute 0.00 K/uL not estab. normal Not Available [facility] [address] [place] [address], [address], 12/16/2020 17:16:52 12/17/19 21 12/16/2020 B12/F OLIC ACID PANEL folic acid >20.0 NG/mL 4.6-34 .8 normal Not Available [facility] [address] [place] [address], [address], 12/16/2020 17:36:10 12/17/19 21 12/16/2020 B12/F OLIC ACID PANEL vitamin B12 1275 pg/mL 232-12 45 high Not Available [facility] [address] [place] [address], [address], 12/16/2020 17:36:10 12/17/19 21 12/16/2020 IRON PANEL -TOTA L AND TIBC iron 72 ug/dL 37-145 normal Not Available [facility] [address] [place] [address], [address], 12/16/2020 17:36:38 12/17/19 21 12/16/2020 IRON PANEL -TOTA L AND TIBC total iron binding cap. 344 ug/dL _(dev c) 250-45 0 normal Not Available [facility] [address] [place] [address], [address], 12/16/2020 17:36:38 12/17/19 21 12/16/2020 IRON PANEL -TOTA L AND TIBC unsat.iron binding cap. 272 ug/dL 112-34 7 normal Not Available [facility] [address] [place] [address], [address], 12/16/2020 17:36:38 12/17/19 21 12/16/2020 IRON PANEL -TOTA L AND TIBC % saturation 21 %_(ca lc) 15-50 normal Not Available [facility] [address] [place] [address], [address], 12/16/2020 17:36:38 12/17/19 21 12/16/2020 COMP. METAB OLIC PANEL glucose 82 mg/dL 74-100 normal Not Available [facility] [address] [place] [address], [address], 12/16/2020 17:36:40 12/17/19 21 12/16/2020 COMP. METAB OLIC PANEL blood urea nitrogen 13 mg/dL 6-20 normal Not Available [facility] [address] [place] [address], [address], 12/16/2020 17:36:40 12/17/19 21 12/16/2020 COMP. METAB OLIC PANEL creatinine 0.76 mg/dL 0.50-0 .95 normal Not Available [facility] [address] [place] [address], [address], 12/16/2020 17:36:40 12/17/19 21 12/16/2020 COMP. METAB OLIC PANEL BUN/creatini ne ratio 17 (calc ) 10-20 normal Not Available [facility] [address] [place] [address], [address], 12/16/2020 17:36:40 12/17/19 21 12/16/2020 COMP. METAB OLIC PANEL sodium 137 mmol/ L 136-14 5 normal Not Available [facility] [address] [place] [address], [address], 12/16/2020 17:36:40 12/17/19 21 12/16/2020 COMP. METAB OLIC PANEL potassium 3.5 mmol/ L 3.4-5. 0 normal Not Available [facility] [address] [place] [address], [address], 12/16/2020 17:36:40 12/17/19 21 12/16/2020 COMP. METAB OLIC PANEL chloride 101 mmol/ L 98-107 normal Not Available [facility] [address] [place] [address], [address], 12/16/2020 17:36:40 12/17/19 21 12/16/2020 COMP. METAB OLIC PANEL carbon dioxide 22 mmol/ L 22-31 normal Not Available [facility] [address] [place] [address], [address], 12/16/2020 17:36:40 12/17/19 21 12/16/2020 COMP. METAB OLIC PANEL anion gap 14 (calc ) 7-25 normal Not Available [facility] [address] [place] [address], [address], 12/16/2020 17:36:40 12/17/19 21 12/16/2020 COMP. METAB OLIC PANEL calcium 9.5 mg/dL 8.6-10 .2 normal Not Available [facility] [address] [place] [address], [address], 12/16/2020 17:36:40 12/17/19 21 12/16/2020 COMP. METAB OLIC PANEL total protein 8.0 g/dL 6.4-8. 3 normal Not Available [facility] [address] [place] [address], [address], 12/16/2020 17:36:40 12/17/19 21 12/16/2020 COMP. METAB OLIC PANEL albumin 4.8 g/dL 3.5-5. 2 normal Not Available [facility] [address] [place] [address], [address], 12/16/2020 17:36:40 12/17/19 21 12/16/2020 COMP. METAB OLIC PANEL globulin 3.2 g/dL_ (calc ) 1.5-4. 5 normal Not Available [facility] [address] [place] [address], [address], 12/16/2020 17:36:40 12/17/19 21 12/16/2020 COMP. METAB OLIC PANEL albumin/glob ulin ratio 1.5 (calc ) 1.1-2. 5 normal Not Available [facility] [address] [place] [address], [address], 12/16/2020 17:36:40 12/17/19 21 12/16/2020 COMP. METAB OLIC PANEL bilirubin, total 0.3 mg/dL 0.1-1. 2 normal Not Available [facility] [address] [place] [address], [address], 12/16/2020 17:36:40 12/17/19 21 12/16/2020 COMP. METAB OLIC PANEL alkaline phosphatase 65 U/L 35-106 normal Not Available [facility] [address] [place] [address], [address], 12/16/2020 17:36:40 12/17/19 21 12/16/2020 COMP. METAB OLIC PANEL AST 17 U/L 0-32 normal Not Available [facility] [address] [place] [address], [address], 12/16/2020 17:36:40 12/17/19 21 12/16/2020 COMP. METAB OLIC PANEL ALT 18 U/L 0-33 normal Not Available [facility] [address] [place] [address], [address], 12/16/2020 17:36:40 12/17/19 21 12/16/2020 COMP. METAB OLIC PANEL GFR 109 >= 60 normal Not Available [facility] [address] [place] [address], [address], 12/16/2020 17:36:40 12/17/19 21 12/16/2020 COMP. METAB OLIC PANEL GFR non- 94 >= 60 normal NOT E Chron ic kidne y disea se is defin ed as kidne y damag e for more than 3 month s or a GFR less than 60 mL/mi n/1.7 3 m2 for great er than 3 month s. This calcu latio n has not been valid ated in pregn ant women . For pedia tric patie nts refer to [facility] ation https ://delia severino.o rg/pr ofess ional s/KDO QI/gf r_cal culat orPed Not Available [facility] [address] [place] [address], [address], 12/16/2020 17:36:40 12/17/19 21 12/16/2020 RUIZ TIN ferritin 42 NG/mL 13-157 normal Not Available [facility] [address] [place] [address], [address], 12/16/2020 17:36:41 12/17/19 21 12/16/2020 T4,FR EE T4,free 1.11 NG/dL 0.93-1 .70 normal Not Available [facility] [address] [place] [address], [address], 12/16/2020 17:36:42 12/17/19 21 12/16/2020 MAGNE SIUM magnesium 2.2 mg/dL 1.6-2. 6 normal Not Available [facility] [address] [place] [address], [address], 12/16/2020 17:36:44 12/17/19 21 12/16/2020 TSH TSH 1.110 uIU/m L 0.270- 4.200 normal Not Available [facility] [address] [place] [address], [address], 12/16/2020 17:36:45 12/17/19 21 12/16/2020 VITAM IN D 25-OH vitamin D 25-oh, total 48 NG/mL >=30 NG/mL normal Not Available [facility] [address] [place] [address], [address], 12/16/2020 17:36:53 04/12/20 04/12/2022 SURGI DEV surgical SEE BELOW Depar tment of Patho logy Surgi dev Patho logy Repor t NAME: SAIMAISIS MIYA HENNINGWN PATH. :VA-[id number] [id number] Copy to: Diagn osis: Endom etria l biops y: - Disor dered proli ferat trinity endom etriu m with beverly al break down jesus es - Negat trinity for endom etria l hyper plasi a and malig kaylen SOURC E OF SPECI MEN: ENDOM ETRIA L BIOPS Y CLINI DEV INFOR MATIO N: N93.9 Gross Descr iptio n: Recei luzmaria in forma tremayne label ed with the patie nt's name and desig nated as endo metri al biops y are multi ple fragm ents of red-t an tissu e admix ed with blood measu ring 1.8 x 1.8 x 0.1 [address] in ag[address] gate. Entir juanis submi tted in one block . JAB 04/13 10:25 AM Micro scopi c Descr iptio n: Micro scopi c exami natio n perfo rmed. BIB Ortiz MAGGIE BETANCUR-Beth MASSEY MD Pau d Out Date: 04/14 11:03 Page 1 of 1 Not Available 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 TECHNI QUE: Multip le sonogr aphic images of the pelvis were obtain ed throug h transv aginal route. COMPAR IVETTE: None. FINDIN GS: UTERUS : Size = 7 x 4.8 x 3.9 cm. EMS thickn ess = 11 mm. Anteve rted, antefl exed, normal in size. No myomet rial abnorm ality seen. RIGHT ADNEXA : Ovary size = 2.8 x 1.8 x 3.6 cm. Normal in size and appear ance. No adnexa l mass. LEFT ADNEXA : Ovary size = 3.9 x 2.5 x 2.2 cm. There is a 2 cm diamet er corpus luteum cyst in the left ovary. There is an echoge sheela-ap pearin g 2.3 cm diamet er in the left ovary which may repres ent a hemorr hagic follic le. CUL-DE -SAC: No fluid or mass IMPRES JENNIFER: 1. Possib le hemorr hagic follic le left ovary. Follow -up is recomm ended in 6 or 10 weeks time for furthe r evalua tion. 2. No other signif icant abnorm ality is seen. Interp reted By: Kathi Broussard MD Electr onical ly Signed By: Kathi Broussard MD on 021 2:[address] Radiology [facility] [address] [place] [address], [address], 12/11/2020 15:18:24 05/13/19 22 05/11/2021 US, trans vagin al No observ ation record ed. BARCODE Not Available 2021 11:16:23 Result Notes None recorded. Problems No Known Problems Procedures Surgical History Date Name Laterality Status Provider Name and Address Organization Details Recorded Time 04/12/20 22 Biopsy Endometrial completed AAKASH BAIG MD [facility] [place], [address], [facility] 04/12/2022 14:28:29 05/11/19 22 Transvaginal Ultrasound; Non-OB completed AAKASH BAIG MD [facility] [place], [address], [facility] 05/11/2021 10:24:12 06/27/19 20 Date of Last Pap Smear completed Kaylynn Ortiz [facility] 07/04/2019 15:44:54 fasciectomy completed Tree Gaines [facility] 05/11/2021 09:25:39 Imaging Results Imaging Date Name Status LastModified by Organization Details LastModified Time 12/11/2020 US, transvaginal completed [email or web address] [facility] [address] [place], [address], 12/11/2020 15:18:24 05/11/2021 US, transvaginal completed BARCODE Informat ion not available 05/13/2021 11:16:23 Procedure Notes None recorded. Medical Equipment None Reported. Allergies No known drug allergies Medications Name Sig Start Date Stop Date Status Note LastModified by Organization Details LastModified Time Multiple Vitamin capsule Daily active Duration : 30 days;Milton quency: daily;Me dication Descript ion: multivit warner; Dosage:1 ; Route:or al; refills: 3; Quantity :100 capsule Not Available Not Available Not Available topiramate 25 mg tablet Take 1 tablet every day by oral route. 05/11 completed Not Available Not Available Not Available Provera 10 mg tablet Take 1 tablet every day by oral route for 14 days. 2021 active Not Available Not Available Not Avai lable topiramate 100 mg tablet Take 1 tablet every day by oral route. active Not Available Not Available No t Available Lexapro 10 mg tablet Daily active Duration : 30 days;Milton quency: daily;Me dication Descript ion: escitalo pram; Dosage:1 ; Route:or al; refills: 5; Quantity :30 tablet Not Available Not Available Not Available topiramate 50 mg tablet Take 1 tablet every day by oral route at bedtime . 05/11 completed Not Available Not Available Not Available Vitals Date Recorded Body weight Systolic blood pressure Diastolic blood pressure Provider Name and Address Organization Details Last Updated DateTime 06/27/2019 02253.23 g 120 mm[Hg] 70 mm[Hg] Baldemar Recinoson [facility] 06/27/2019 11:05:14 Date Recorded Body weight Body mass index (BMI) Body height Heart rate Oxygen saturation Oxygen saturation in Arterial blood by Pulse oximetry Systolic blood pressure Diastolic blood pressure Provider Name and Address Organization Details Last Updated DateTime 1 85169.4 2 g 22.9 kg/m2 160.02 cm 71 /min 99 % 99 % 124 mm[Hg] 80 mm[Hg] Danika Rosario [facility] 1 15:00:29 Date Recorded Body height Body mass index (BMI) Body weight Systolic blood pressure Diastolic blood pressure Provider Name and Address Organization Details Last Updated DateTime 05/11/2021 160.02 cm 22.1 kg/m2 80444.05 g 112 mm[Hg] 74 mm[Hg] Tree Gaines [facility] 2 09:27:56 Date Recorded Body height Body mass index (BMI) Body weight Provider Name and Address Organization Details Last Updated DateTime 04/12/2022 160.02 cm 22.8 kg/m2 93692.01 g Barbie Marroquin [facility] 04/12/2022 14:05:56 Social History Question Answer Notes LastModified by Organizat ion Details LastModified Time Tobacco Smoking Status Never [facility] 11:08:19 What Was The Date Of Your Most Recent Tobacco Screening? 04/12/2022 [email or web address] Information not available 04/12/2022 Do You Or Have You Ever Used Any Other Forms Of Tobacco Or Nicotine? No [email or web address] Information not available 12/16/2020 Sex: Unknown Functional Status None recorded. Mental Status None recorded. Family History Relationship Description Onset Age of this Age Resolved Age Notes LastModified by Organization Details LastModified Time Father Diabetes mellitus hypert ension [email or web address] Not available 06/27/2019 11:07:54 Paternal Grandmother Family history of malignant neoplasm [email or web address] Not available 2019 11:08:14 Medical History No medical history recorded. Gynecological History Statement/Question Response Abnormal Pap N Date of LMP 06/26/2019 Sexually Active? Y Menses Monthly N Date of Last Pap Smear 06/27/2019 Current Control Method None Most Recent Mammogram Obstetrics History GPAL:G 4 P 2 0 2 2 Type Value Full Term 2 Spontaneous 2 Living 2 Total 4 Immunizations Vaccine Type Date Status Note Provider Nam e and Address Organization Details Recorded Time SARS-COV-2 (COVID-19) vaccine, UNSPECIFIED 05/14/2020 completed Danika horton, [facility] 12/16/2020 14:58:35 SARS-COV-2 (COVID-19) vaccine, UNSPECIFIED 06/04/2020 completed Danika horton, [facility] 12/16/2020 14:58:47 Past Encounters Encounter ID Performer Location Encounter Start Date Encounter Closed Date Diagnosis/Indication Diagnosis SNOMED-CT Code Diagnosis ICD10 Code Diagnosis Note [id number] KEVIN PATTON PA-C MANUFACTURING ENGINEER ASSEMBLY [facility] [address] [place] [address] 06/27/2019 11:02:18 06/27/2019 13:46:10 Routine gynecologic examination done 2116410209 9101 Z01.419 Screening for malignant neoplasm of cervix 802642036 Z12.4 Infection screening 2437 73639 Z11.51 [id number] JAIDA ALLEN PA-C [facility] [address] [place] [address] 12/16/2020 14:47:27 12/16/2020 16:38:41 Anemia 441236538 D64.9 Will recheck labs. Await these results. Fatigue 57257812 R53.83 Migraine 87461891 G43.90 9 trial of topamax as directed. We can advance strength as needed. [id number] AAKASH BAIG MD MANUFACTURING ENGINEER ASSEMBLY [address] CLOSED [address] [place] [address] 05/11/2021 09:09:38 05/11/2021 10:58:11 Dysmenorrhea [id number] N94.6 Patient has some mild somewhat dysmenorrh ea. Tends to come and go. At this point she is not really wanting specific treatment for this just wanting to make sure everything is okay. I have a suspicion maybe she has some underlying endometrio sis although none visible enough on exam or with ultrasound . We did not really talk about hormone treatment for this does not sound like she is really interested in that currently. Abnormal u terine bleeding [id number] 9100 N93.9 Patient with an episode of abnormal uterine bleeding. It started after the COVID-vacc ine booster. There has been some evidence to support irregular menstrual bleeding related to the COVID vaccines. I do not see any suspicious findings at this time and currently the ultrasound does not show any endometria l abnormalit ies therefore did not do a biopsy today. If her abnormal bleeding continues though she will return I will do a biopsy. [id number] AAKASH BAIG MD [facility] [address] [place] [address] 04/12/2022 13:56:49 04/12/2022 15:26:48 Abnormal uterine bleeding [id number] 9100 N93.9 endometria l bx done. AUB x 3 weeks. pt with vagal reaction. treated with juice. laying down. After she demonstrat ed feeling much much better she was released from the office. Told to call back if the abnormal bleeding does not resolve on its own. She does have a progestero ne in case she needs to if the bleeding does not stop while she is on her vacation. Health Concerns Section Related Observation LastModified by Organization Detai ls LastModified Time None Recorded Concern Status LastModified by Organization Details LastModified Time None Recorded Advance Directives Directive None Recorded Payers Encounter Date Sequence Insurance Name Policy Number Policy Villarreal Covered Member ID Villarreal Member ID Guarantor Name 06/27/2019 1 [place] [id number] Marielena Lugo [id number] Marielena Lugo 12/16/2020 1 [employer] - [facility] - [facility] (SELF FUNDED NEW HEALTH POS) [id number] Abbe Lugo [id number] Marielena Lugo 05/11/2021 1 [employer] - [employer] [facility] (SELF FUNDED NEW HEALTH POS) [id number] Abbe Lugo [id number] Marielena Lugo 04/12/2022 1 [employer] - [employer] (SELF FUNDED NEW HEALTH POS) [id number] Abbe Lugo [id number] Marielena Lugo Notes Date Note Type Note Provider Name and Address Organization Details Recorded Time 06/27/2019 text/html 44 yo here today for annual, pap No fam h/o ovarian or uterine cancer Paternal grandmother with breast cacner No h/o abnormal paps Mammo - has had 2 biopsies - both benign - mammo coming up. control - none and is happy with this 3 months ago started with some vaginal bleeding - has US that showed multiple cysts, Ca125 was normal - at that time was bleeding every 2-3 weeks, sometimes it was like full period and other times it was spotting. Now the pain that was bilateral is mostly gone but again having short cycles. REally feeling like this is all perimenopausal KEVIN PATTON PA-C [address] [place], [address], [facility] 06/27/2019 12:36:34 12/16/2020 text/html Pt comes in to jhonathan. She has been fatigued lately, and had some labs that showed a low ferritin but nothing else. She eats and sleeps well. 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 Her stress level is much lower than it used to be when she was working.She does have migraines. These can be debilitating. SHe is interested in trying topamax for prevention. JAIDA ALLEN PA-C [address] [place], [address], [facility] 12/19/2020 22:33:16 05/11/2021 text/html 46 y/o ( 2) referral from Merly here today for an ultrasound and possible EMB for AUB. Merly also mentioned to discuss ablation. Reference pt. case 04/30/2021. 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 PT had some severe pain a couple of years ago. Was seeing Dr David at the time. Was dx with some cysts then. this pain did get better. She seemed to just get along just fine after that and was having nice and regular periods until about a few weeks ago started with a normal menstrual cycle but then the bleeding started back within a few days. She felt pretty hormonal at that time with some feelings of estrogen has. She notes that her COVID-vaccine was a little bit before this episode of strange bleeding. Then at some point after a few weeks of this daily bleeding then she felt her hormone levels drop and her menstrual flow picked up and it seemed like a normal period after that the cycle then stopped and she has been normal since with no actual complaints. prior to this abnormal bleeding she was regular. Then also about a few months ago started back to the cyclic pain. Patient's had some consideration of may be having underlying endometriosis and things is that such but she has never had to do laparoscopy. These ovarian cyst she has had in the past tend to come and go and she does feel those with her ovulation. As far as cancer screening she had a colonoscopy at age 40 due to family history she is due to do her screening at 45. Dr[address] Tha Quezada is her GI physician. AAKASH BAIG MD [facility] [place], [address], [facility] 05/11/2021 10:25:55 04/12/2022 text/html 47 y/o here toda y for EMB for AUB. per patient case 04/11/2022- patient having bleeding for one month. same issue as when she was seen 05/11/2021.Provera given to patient- has not started yet because she thought she was slowing down on the bleeding. 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 Patient was taking Vitrex and assuming that had something to do with her bleeding. Still continuing to take this. Bleeding started , after running out of the vitex then she skipped a period then when it restarted it just has not stopped. then restarted the vitex and slowed down and then went to one and has gotten worse. Patient has had her thyroid checked recently and has been normal. We checked a bunch of things including thyroid and other labs in 2020. She does not feel like anything else medical is going on. We had done an ultrasound last year that was normal in April 2021. 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 AAKASH BAIG MD [facility] [place], [address], [facility] 04/12/2022 14:42:32 OBGyn Episode No OBEpisode recorded.
== END 2024-08-23 23:59 | disposition home or self-care (01) ==
LOC: RAD 14:02
PROVIDERS: PCP Nurse Practitioner Family; Visit Provider Obstetrics & Gynecology
DX: N93.9 Abnormal uterine and vaginal bleeding, unspecified (principal)
CPT/HCPCS: 76830

== ENCOUNTER 2024-11-12 16:28 | Outpatient (CLI) | payer BC, SELFPAY ==
--- OUTSIDE RECORDS SUMMARY | 2024-11-12 16:30 | XMS_ITS | Clinical Summary ---
Author Organization [facility] Address [address] [place] [address] Care Team Providers Care Account Leader Name Role Phone Unavailable Primary Care Provider Unavailabl e Social History Tobacco Use Types Packs/Day Years Used Date Smoking Tobacco: Never Assessed Abuse Screen Answer Date Recorded Unsafe at Home or Work/School Not on file Feels Threatened by Someone? Not on file 12/2022 Does Anyone Keep You from Co ntacting Others or Doint Things Outside the Home? Not on file 01/30/2023 Physical Sign of Abuse Present Not on file 1 Housing Stability Answer Date Recorded Current Living Arrangements Not on file 12/2022 Potentially Unsafe Housing Conditions Not on staci e 01/30/2023 Family and Community Support Answer Nathan e Recorded Help with Day-to-Day Activities Not on file 01/30/2023 Lonely or Isolated Not on file 01/30/2023 Employment Answer Date Recorded Do you want help finding or keeping work or a laura b? Not on file 01/30/2023 Disabilities Answer Date Recorded Concentrating, Remembering, or Making Decisions Difficulty Not on file 01/30/2023 Doing Errands Independently Difficulty Not on fi le 01/30/2023 Education Answer Date Recorded Help with school or training? Not on file Preferred Language Not on file 01/30/2023 Comments Unknown Sex and Gender Information Value Date Recorded Sex Assigned at Not on file Legal Sex Female 1:08 PM EDT Gender Identity Not on file Sexual Orientation Not on file Plan of Treatment Health Maintenance Due Date Last Done Comments ANNUAL PHYSICAL 1975 Annual Gynecologic Pelvic an d Breast Exam 1975 HEPATITIS C SCREENING 1975 TDAP/TD VACCINES (1 - Tdap) 1994 MAMMOGRAM 2015 COLOGUARD 02/24/2020 COLON CANCER SCREENING 5 YEA R SIGMOIDOSCOPY 02/24/2020 COLONOSCOPY 02/24/2020 COLORECTAL CANCER SCREENING 02/24/2020 CT COLONOGRAPHY 02/24/2020 FECAL OCCULT BLOOD TEST 02/24/2020 FIT Testing (1 year) 02/24/2020 COVID-19 Vaccine (2023-2 5 season) 2023 INFLUENZA VACCINE 01/22/2025 Pneumococcal Vaccine 0-49 Aged Out No longer eligible based on patient's age to complete this topic
--- OUTSIDE RECORDS SUMMARY | 2024-11-12 16:30 | XMS_ITS | Encounter Summary ---
Author Organization [facility] Address [address] [place] [address] Care Team Providers Care Manufacturing Worker Name Role Phone Cristine Patton APRN Primary Care Provider +1- [phone] Encounter Details Date Type Department Care Team (Latest Contact Info) Description 09/03/2021 [facility] [address] [place] [address] Zaina Gaines APRN [address] [address] Lymphadenopathy (Primary Dx) Social History Tobacco Use Types Packs/Day Years Used Date Smoking Tobacco: Never Smokeless Tobacco: Never Alcohol Use Standard Drinks/Week Comments No 0 (1 standard drink = 0.6 oz pur e alcohol) Comments No Sex and Gender Information Value Date Recorded Sex Assigned at Not on file Legal Sex Female 8:07 PM EDT Gender Identity Not on file Sexual Orientation Not on file documented as of this encounter Plan of Treatment Not on file documented as of this encounter Visit Diagnoses Diagnosis Lymphadenopathy- Primary Enlargement of lymph nodes documented in this encounter Care Teams Manufacturing Worker Relationship Specialty Start Date End Date Cristine Patton APRN [address] [place] [address] PCP - General 09/04/20 documented as of this encounter
--- OUTSIDE RECORDS SUMMARY | 2024-11-12 16:30 | XMS_ITS | Clinical Summary ---
Author Organization [facility] Address [address] [place] [address] Care Team Providers Care Wreath And Garland Maker Name Role Phone PoojaCristine camejo Nichelle ORTA Primary Care Provider +1- [phone] Allergies No known active allergies Immunizations Immunization Administration Dates Next Due Influenza, Unspecified 05/08/2019,2016,01/14/2016,03/30/2015,05/2013 MMR 12/03/1990,02/21/1976 PPD Skin Test (TB Skin Test) 06/20/2011, 02/05/2010,10/09/2009,08/29/2007,,06/11/2007,04/29/2002,11/27/2001 Tdap 06/20/2011 Family History Medical History Relation Name Comments Diabetes Other 1 Hypertension Other 2 Osteoporosis Other 3 Breast cancer Paternal Grandmother Colon cancer Paternal Great-Grandfather Relation Name Status Comments Other 1 Other 2 Other 3 Paternal Grandmother Paternal Great-Grandfather Social History Tobacco Use Types Packs/Day Years Used Date Smoking Tobacco: Never Smokeless Tobacco: Never Tobacco Cessation:Counseling Given: Not Answered Alcohol Use Standard Drinks/Week Comments No 0 (1 standard drink = 0.6 oz pur e alcohol) Comments No Sex and Gender Information Value Date Recorded Sex Assigned at Not on file Legal Sex Female 8:07 PM EDT Gender Identity Not on file Sexual Orientation Not on file Last Filed Vital Signs Vital Sign Reading Time Taken Comments Blood Pressure 122/64 02/12/2019 1:00 PM EDT Pulse 65 11/12/2018 8:15 AM EDT Temperature 36.9 C (98.4 F) 11/12/2018 8:15 AM EDT Respiratory Rate - - Oxygen Saturation - - Inhaled Oxygen Concentration - - Weight 58.1 kg (128 lb) 03/14/2024 7:35 AM EST Height 162.6 cm (5' 4 ) 03/14/2024 7:35 AM EST Body Mass Index 21.97 03/14/2024 7:35 AM EST Plan of Treatment Health Maintenance Due Date Last Done Comments [facility]-Depression Screening 1975 [facility]-HIV Screening 1975 [facility]-Hepatitis C Screening 1975 [facility]-/Child/Adol SDOH Screenings 1975 [facility]- SDOH Screenings 1993 [facility]-Adult SDOH Screenings 1993 [facility]-Hepatitis B Vaccines (1 of 3 - 19+ 3-dose series) 1994 [facility]-Pap Smear 03/11/2005 03/11/2002, 12/2000, 03/12/1999 [facility]-Cervical Cancer Screening 03/11/2007 [facility]-HPV/Cotest 03/11/2007 03/11/2002, 12/2000, 03/12/1999 CT Colonography 02/24/2020 Colonoscopy 02/24/2020 FIT-DNA 02/24/2020 FIT 02/24/2020 FOBT 02/24/2020 Sigmoidoscopy 02/24/2020 [facility]-Colorectal Cancer Screening 02/24/2020 [id number] Vaccine ( season) 2023 03/01/2022, 03/22/2021, 05/18/2020, Additional history exists [facility]-Influenza Vaccine (#1) 12/23/202403/01, 04/27/2021, 03/13/2020, Additional history exists [facility]-Zoster Vaccines (1 of 2) 2025 [facility]-DTaP,Tdap,and Td Vaccines (3 - Td or Tdap) 10/24/2028 10/24/2018, 06/20/2011 HPV Vaccines Aged Out No longer eligi ble based on patient's age to complete this topic [facility]-HIB Vaccines Aged Out No longer e ligible based on patient's age to complete this topic [facility]-Hepatitis A Vaccines Aged Out No longer eligible based on patient's age to complete this topic [facility]-IPV Vaccines Aged Out No longer e ligible based on patient's age to complete this topic [facility]-Pneumococcal Vaccine: Pediatrics (0 to 5 Years) and At-Risk Patients (6 to 49 Years) Aged Out No longer eligible based on patient's age to complete this topic [facility]-Rotavirus Vaccines Aged Out No lo nger eligible based on patient's age to complete this topic Procedures Procedure Name Priority Date/Time Associated Diagnosis Comments CYTO DATA CONVERSION Routine 03/11/2002 12:00 AM EST from Last 3 Months or Most Recently Relevant to Health Maintenance Results * Cytology (03/11/2002 12:00 AM EST) 03/11/2002 03/12/2002 8:3 5 AM EST Narrative SUNQUEST - 03/17/2002 4:44 PM EST [facility] MR #: [facility] [address] [place], [place] [address] 1975 (Age: 27) FW Collect Date: 03/11/2002 00:00 Receipt Date: 03/12/2002 08:35 Page 1 DEPARTMENT OF PATHOLOGY AND LABORATORY MEDICINE CYTOPATHOLOGY REPORT Email: [email or web address] ATTENDING MD/Practitioner: Amy Young CNM Service: TELEVISION NEWSCAST DIRECTOR Location: [facility] Reported: 03/17/2002 16:44 Collected: 03/11/2002 00:00 INTERPRETATION CERVICAL/VAGINAL PAP SMEAR: NEGATIVE FOR INTRAEPITHELIAL LESION OR MALIGNANCY. SATISFACTORY FOR EVALUATION; ENDOCERVICAL/ TRANSFORMATION ZONE COMPONENT PRESENT. Electronically Signed Out By HARMONY Limon (ASCP) HARMONY Limon (ASCP) Cervical cytology is a screening test primarily for squamous cancers and precursors and has associated false negative and positive results. New technologies such as liquid based sampling may decrease but will not eliminate all false negative results. Regular screening and follow-up of unexplained clinical signs and symptoms are recommended to minimize false negative results. Please see the ASCCP website (www.asccp.org) for followup recommendations. If HPV testing was requested, correlation with the results is suggested (please call Microbiology at [phone] for results). CLINICAL INFORMATION: Menstrual History: Cyclic Date of Last Menstrual Period: 03 04 02 Contraceptive History: control pills SPECIMEN DESCRIPTION: A: CERVICAL/VAGINAL PAP SMEAR SMEARS: PAP STAIN ICD: V76.2 CERVIX, SPECIAL SCREENING FOR MALIGNANT NEOPLASM F: A; 08733 SCREEN SNOMED CODES: A; [id number] In cases where a pathologist has signed out the report, the service has been rendered in part by a resident. The signing pathologist has performed and is responsible for the reported pathologic evaluation. us Historical Provider LAB PATHOLOGY ORDERABLES Final Result SUNQUEST from Last 3 Months or Most Recently Relevant to Health Maintenance Insurance ANTHEM Care Teams Wreath And Garland Maker Relationship Specialty Start Date End Date Cristine Patton APRN [address] [place] [address] PCP - General 09/04/20
--- OUTSIDE RECORDS SUMMARY | 2024-11-12 16:30 | XMS_ITS | Data Portability ---
Author Organization [facility] MYRA Zelaya [place] Address [address] [place] [address] Assessment No assessment recorded. Plan of Treatment Reminders Order Date Submit Date Provider Last Modified By Organization Details Last Modified Time Details Appointments None recorded. Lab surgical pathology study 2021 022 [facility], [address] [place] [address], [id number], 11:05:02 ferritin, serum or plasma 2020 021 [facility], [address] [place] [address], [address], 17:36:41 iron + total iron-bindin g capacity (TIBC), serum 2020 [facility], [address] [place] [address], [address], 17:36:38 vitamin B12 + folate, serum or blood 2020 [facility], [address] [place] [address], [address], 17:36:10 CBC w/ auto diff 2020 [facility], [address] [place] [address], [id number], 08/25/202 1 17:16:52 CMP, serum or plasma 2020 021 [facility], [address] [place] [address], [address], 1 17:36:40 T4, free, serum 2020 021 [facility], [address] [place] [address], [address], 1 17:36:42 TSH, serum or plasma 2020 021 [facility], [address] [place] [address], [address], 1 17:36:45 vitamin D, 25-hydroxy, total, serum 2020 021 [facility], [address] [place] [address], [address], 1 17:36:53 magnesium, QN, serum or plasma 2020 021 [facility], [address] [place] [address], [address], 1 17:36:44 cytology, vaginal/cer vical 2019 020 [facility], [address] [place] [address], [address], 0 12:21:48 HPV DNA, high-risk 2019 020 [facility], [address] [place] [address], [address], 0 17:24:25 Referral None recorded. Procedures None recorded. Surgeries None recorded. Imaging None recorded. Medication Orders topiramate 25 mg tablet 2020 021 [id number], [address], [id number], 2 09:22:45 Patient TargetsNo targets recorded. Patient Instructions Encounter Date Encounter Id Patient Instructions Last Modified By Organization Details Last Modified Time 06/27/2019 [id number] learning about cervical cancer screening Not available [...] rmed using the APTIM A HPV Assay ([employer] . This assay detec ts E6/E7 viral messe nger RNA (mRNA ) from 14 high- risk HPV types (16,1 8,31, 33,35 ,39,4 5,51, 52,56 ,58,5 9,66, 68). The gideon tical perfo rmanc e joseph cteri stics of this assay have been deter mined by [facility] tammi s. The modif icati ons have not been clear ed or appro luzmaria by the FDA. This assay has been valid ated pursu ant to the CLIA regul ation s and is used for clini dev purpo ses. TEST PERFO RMED AT: [facility] [address] [place] [address] , [place] [address] WALE Wolf MD Not Available [facility] [address] [facility], [place], [address], 07/01/2019 17:24:25 06/27/1906/27/2019 cytol ogy, vagin al/ce rvica l Pap smear SEE BELOW Depar tment of Patho logy GYNEC OLOGI DEV CYTOL OGY REPOR T NAME: [facility] [place] PATHO LOGY NO.: [id number] Copy to: [facility] OF SPECI MEN: CERVI DEV/E NDOCE [...] s. Page 1 of 1 Not Available [facility] [address] [place] [address], [place], [address], 07/03/2019 12:21:48 12/17/19 21 12/16/2020 COMPL ETE BLOOD COUNT white blood cells 5.2 K/uL 3.8-10 .8 normal Not Available [facility] [address] [place] [address], [address], 12/16/2020 17:16:52 12/17/19 21 12/16/2020 COMPL ETE BLOOD COUNT red blood cells 4.02 M/uL 3.80-5 .20 normal Not Available [facility] [address] [place] [address], [address], 12/16/2020 17:16:52 12/17/19 21 12/16/2020 COMPL ETE BLOOD COUNT hemoglobin 13.0 g/dL 12.0-1 6.0 normal Not Available [facility] [address] [place] [address], [address], 12/16/2020 17:16:52 12/17/19 21 12/16/2020 COMPL ETE BLOOD COUNT hematocrit 37.5 % 35.0-4 7.0 normal Not Available [facility] [address] [place] [address], [address], 12/16/2020 17:16:52 12/17/19 21 12/16/2020 COMPL ETE BLOOD COUNT MCV 93 fL 80-100 normal Not Available [facility] [address] [place] [address], [address], 12/16/2020 17:16:52 12/17/19 21 12/16/2020 COMPL ETE BLOOD COUNT MCH 32 pg 26-35 normal Not Available [facility] [address] [place] [address], [address], 12/16/2020 17:16:52 12/17/19 21 12/16/2020 COMPL ETE BLOOD COUNT MCHC 35 g/dL 32-36 normal Not Available [facility] [address] [place] [address], [address], 12/16/2020 17:16:52 12/17/19 21 12/16/2020 COMPL ETE BLOOD COUNT RDW 12.8 % 11.0-1 5.0 normal Not Available [facility] [address] [place] [address], [address], 12/16/2020 17:16:52 12/17/19 21 12/16/2020 COMPL ETE BLOOD COUNT MPV 7.1 fL 6.2-10 .5 normal Not Available [facility] [address] [place] [address], [address], 12/16/2020 17:16:52 12/17/19 21 12/16/2020 COMPL ETE BLOOD COUNT platelet count 268 K/uL 130-40 0 normal Not Available [facility] [address] [place] [address], [address], 12/16/2020 17:16:52 12/17/19 21 12/16/2020 COMPL ETE BLOOD COUNT neutrophil,a bsolute 2.4 K/uL 1.6-8. 4 normal Not Available [facility] [address] [place] [address], [address], 12/16/2020 17:16:52 12/17/19 21 12/16/2020 COMPL ETE BLOOD COUNT lymphocyte,a bsolute 2.1 K/uL 0.4-5. 1 normal Not Available [facility] [address] [place] [address], [address], 12/16/2020 17:16:52 12/17/19 21 12/16/2020 COMPL ETE BLOOD COUNT monocyte,abs olute 0.6 K/uL 0.0-1. 2 normal Not Available [facility] [address] [place] [address], [address], 12/16/2020 17:16:52 12/17/19 21 12/16/2020 COMPL ETE BLOOD COUNT eosinophil,a bsolute 0.1 K/uL 0.0-0. 8 normal Not Available [facility] [address] [place] [address], [address], 12/16/2020 17:16:52 12/17/19 21 12/16/2020 COMPL ETE BLOOD COUNT basophil,abs olute 0.0 K/uL 0.0-0. 3 normal Not Available [facility] [address] [place] [address], [address], 12/16/2020 17:16:52 12/17/19 21 12/16/2020 COMPL ETE BLOOD COUNT % neutrophils 45.3 % 42.0-7 8.0 normal Not Available [facility] [address] [place] [address], [address], 12/16/2020 17:16:52 12/17/19 21 12/16/2020 COMPL ETE BLOOD COUNT % lymphocytes 39.7 % 11.0-4 7.0 normal Not Available [facility] [address] [place] [address], [address], 12/16/2020 17:16:52 12/17/19 21 12/16/2020 COMPL ETE BLOOD COUNT % monocytes 12.4 % 0.0-11 .0 high Not Available [facility] [address] [place] [address], [address], 12/16/2020 17:16:52 12/17/19 21 12/16/2020 COMPL ETE BLOOD COUNT % eosinophils 2.1 % 0.0-7. 0 normal Not Available [facility] [address] [place] [address], [address], 12/16/2020 17:16:52 12/17/19 21 12/16/2020 COMPL ETE BLOOD COUNT % basophils 0.5 % 0.0-3. 0 normal Not Available [facility] [address] [place] [address], [address], 12/16/2020 17:16:52 12/17/19 21 12/16/2020 COMPL ETE BLOOD COUNT nucleated red cells 0.0 % 0.0-0. 9 normal Not Available [facility] [address] [place] [address], [address], 12/16/2020 17:16:52 12/17/19 21 12/16/2020 COMPL ETE BLOOD COUNT nucleated RBCs, absolute 0.00 K/uL not estab. normal Not Available [facility] [address] [place] [address], [address], 12/16/2020 17:16:52 12/17/19 21 12/16/2020 B12/F OLIC ACID PANEL folic acid >20.0 NG/mL 4.6-34 .8 normal Not Available [facility] [address] [place] [address], [address], 12/16/2020 17:36:10 12/17/19 21 12/16/2020 B12/F OLIC ACID PANEL vitamin B12 1275 pg/mL 232-12 45 high Not Available [facility] [address] [place] [address], [address], 12/16/2020 17:36:10 12/17/19 21 12/16/2020 IRON PANEL -TOTA L AND TIBC iron 72 ug/dL 37-145 normal Not Available [facility] [address] [place] [address], [address], 12/16/2020 17:36:38 12/17/19 21 12/16/2020 IRON PANEL -TOTA L AND TIBC total iron binding cap. 344 ug/dL _(dev c) 250-45 0 normal Not Available [facility] [address] [place] [address], [address], 12/16/2020 17:36:38 12/17/19 21 12/16/2020 IRON PANEL -TOTA L AND TIBC unsat.iron binding cap. 272 ug/dL 112-34 7 normal Not Available [facility] [address] [place] [address], [address], 12/16/2020 17:36:38 12/17/19 21 12/16/2020 IRON PANEL -TOTA L AND TIBC % saturation 21 %_(ca lc) 15-50 normal Not Available [facility] [address] [place] [address], [address], 12/16/2020 17:36:38 12/17/19 21 12/16/2020 COMP. METAB OLIC PANEL glucose 82 mg/dL 74-100 normal Not Available [facility] [address] [place] [address], [address], 12/16/2020 17:36:40 12/17/19 21 12/16/2020 COMP. METAB OLIC PANEL blood urea nitrogen 13 mg/dL 6-20 normal Not Available [facility] [address] [place] [address], [address], 12/16/2020 17:36:40 12/17/19 21 12/16/2020 COMP. METAB OLIC PANEL creatinine 0.76 mg/dL 0.50-0 .95 normal Not Available [facility] [address] [place] [address], [address], 12/16/2020 17:36:40 12/17/19 21 12/16/2020 COMP. METAB OLIC PANEL BUN/creatini ne ratio 17 (calc ) 10-20 normal Not Available [facility] [address] [place] [address], [address], 12/16/2020 17:36:40 12/17/19 21 12/16/2020 COMP. METAB OLIC PANEL sodium 137 mmol/ L 136-14 5 normal Not Available [facility] [address] [place] [address], [address], 12/16/2020 17:36:40 12/17/19 21 12/16/2020 COMP. METAB OLIC PANEL potassium 3.5 mmol/ L 3.4-5. 0 normal Not Available [facility] [address] [place] [address], [address], 12/16/2020 17:36:40 12/17/19 21 12/16/2020 COMP. METAB OLIC PANEL chloride 101 mmol/ L 98-107 normal Not Available [facility] [address] [place] [address], [address], 12/16/2020 17:36:40 12/17/19 21 12/16/2020 COMP. METAB OLIC PANEL carbon dioxide 22 mmol/ L 22-31 normal Not Available [facility] [address] [place] [address], [address], 12/16/2020 17:36:40 12/17/19 21 12/16/2020 COMP. METAB OLIC PANEL anion gap 14 (calc ) 7-25 normal Not Available [facility] [address] [place] [address], [address], 12/16/2020 17:36:40 12/17/19 21 12/16/2020 COMP. METAB OLIC PANEL calcium 9.5 mg/dL 8.6-10 .2 normal Not Available [facility] [address] [place] [address], [address], 12/16/2020 17:36:40 12/17/19 21 12/16/2020 COMP. METAB OLIC PANEL total protein 8.0 g/dL 6.4-8. 3 normal Not Available [facility] [address] [place] [address], [address], 12/16/2020 17:36:40 12/17/19 21 12/16/2020 COMP. METAB OLIC PANEL albumin 4.8 g/dL 3.5-5. 2 normal Not Available [facility] [address] [place] [address], [address], 12/16/2020 17:36:40 12/17/19 21 12/16/2020 COMP. METAB OLIC PANEL globulin 3.2 g/dL_ (calc ) 1.5-4. 5 normal Not Available [facility] [address] [place] [address], [address], 12/16/2020 17:36:40 12/17/19 21 12/16/2020 COMP. METAB OLIC PANEL albumin/glob ulin ratio 1.5 (calc ) 1.1-2. 5 normal Not Available [facility] [address] [place] [address], [address], 12/16/2020 17:36:40 12/17/19 21 12/16/2020 COMP. METAB OLIC PANEL bilirubin, total 0.3 mg/dL 0.1-1. 2 normal Not Available [facility] [address] [place] [address], [address], 12/16/2020 17:36:40 12/17/19 21 12/16/2020 COMP. METAB OLIC PANEL alkaline phosphatase 65 U/L 35-106 normal Not Available [facility] [address] [place] [address], [address], 12/16/2020 17:36:40 12/17/19 21 12/16/2020 COMP. METAB OLIC PANEL AST 17 U/L 0-32 normal Not Available [facility] [address] [place] [address], [address], 12/16/2020 17:36:40 12/17/19 21 12/16/2020 COMP. METAB OLIC PANEL ALT 18 U/L 0-33 normal Not Available [facility] [address] [place] [address], [address], 12/16/2020 17:36:40 12/17/19 21 12/16/2020 COMP. METAB OLIC PANEL GFR 109 >= 60 normal Not Available [facility] [address] [place] [address], [address], 12/16/2020 17:36:40 12/17/19 21 12/16/2020 COMP. METAB [...] in pregn ant women . For pedia desmond patie nts refer to [facility] ation https :[email or web address] aguiar.katya severino.o rg/pr ofess ional s/KDO QI/gf r_cal culat orPed Not Available [facility] [address] [place] [address], [address], 12/16/2020 17:36:40 12/17/19 21 12/16/2020 RUIZ TIN ferritin 42 NG/mL 13-157 normal Not Available [facility] [address] [place] [address], [address], 12/16/2020 17:36:41 12/17/19 21 12/16/2020 T4,FR EE T4,free 1.11 NG/dL 0.93-1 .70 normal Not Available [facility] [address] [place] [address], [address], 12/16/2020 17:36:42 12/17/19 21 12/16/2020 MAGNE SIUM magnesium 2.2 mg/dL 1.6-2. 6 normal Not Available [facility] [address] [place] [address], [address], 12/16/2020 17:36:44 12/17/19 21 12/16/2020 TSH TSH 1.110 uIU/m L 0.270- 4.200 normal Not Available [facility] [address] [place] [address], [address], 12/16/2020 17:36:45 12/17/19 21 12/16/2020 VITAM IN D 25-OH vitamin D 25-oh, total 48 NG/mL >=30 NG/mL normal Not Available [facility] [address] [place] [address], [address], 12/16/2020 17:36:53 04/12/20 22 04/12/2022 SURGI DEV surgical SEE BELOW Depar tment of Patho logy Surgi dev Patho logy Repor t NAME: MARIELENA LAKE PATH. :CT-2 2-128 87 Copy to: Diagn osis: Endom [...] c exami natio n perfo rmed. BIB DANTE CAML-P MD BRYSON Pau d Out Date: 04/14 11:03 Page 1 of 1 Not Available [facility] [address] [place] [address], [address], 04/14/2022 11:05:02 12/12/19 21 12/11/2020 US, trans vagin al Formerly [facility] [address] [place] [address] Patien t Name: MARIELENALILI LANDAVERDERUMA Nichelle Patien t : [phone] Patien t Orderi Provid er: JENNIFER PATTON EXAM DATE: 2020 EXAM: US PELVIS STRIPPER SOFT PLASTIC TRANSV AGINAL CLINIC AL INFORM ATION: Left [...] Kathi Broussard MD on 021 2:12 PM econkaiser permanent[facility] Radiology [facility] [address] [place] [address], [address], 12/11/2020 15:18:24 05/13/19 22 05/11/2021 US, trans vagin al No observ ation record ed. BARCODE Not Available 2021 11:16:23 Result Notes None recorded. Problems No Known Problems Procedures Surgical History Date Name Laterality Status Provider Name and Address Organization Details Recorded Time 04/12/20 22 Biopsy Endometrial completed AAKASH BAIG MD [facility] [place], [address], [facility] 04/12/2022 14:28:29 05/11/19 22 Transvaginal Ultrasound; Non-OB completed AAKASH BAIG MD [facility] [place], [address], [facility] 05/11/2021 10:24:12 06/27/19 Date of Last Pap Smear completed Kaylynn Ortiz [facility] 07/04/2019 15:44:54 fasciectomy completed Tree Gaines [facility] 05/11/2021 09:25:39 Imaging Results None recorded. Procedure Notes None recorded. Medical Equipment None [...] Available Not Available Vitals Date Recorded Body height Body mass index (BMI) Body weight Systolic And Diastolic Provider Name and Address Organization Details Last Updated DateTime 05/11/2021 160.02 cm 22.1 kg/m2 72912.05 g 112/74 mm[Hg] Khoijosseline Eder [facility] 05/11/2021 09:27:56 Date Recorded Body weight Systolic And Diastolic Provider Name and Address Organization Details Last Updated DateTime 06/27/2019 81996.23 g 120/70 mm[Hg] Efrenregulo Recinoson [facility] 06/27/2019 11:05:14 Date Recorded Body weight Body mass index (BMI) Body height Heart rate Oxygen saturation Oxygen saturation in Arterial blood by Pulse oximetry Systolic And Diastolic Provider Name and Address Organization Details Last Updated DateTime 1 89228.4 2 g 22.9 kg/m2 160.02 cm 71 /min 99 % 99 % 124/80 mm[Hg] Danika Rosario [facility] 15:00:29 Date Recorded Body height Body mass index (BMI) Body weight Provider Name and Address Organization Details Last Updated DateTime 04/12/2022 160.02 cm 22.8 kg/m2 53783.01 cookie Marroquin [facility] 04/12/2022 14:05:56 Social History Question Answer Notes LastModified by Organizat ion Details LastModified Time Tobacco Smoking Status Never Smoker [facility]/27/2019 11:08:19 What Was The Date Of Your Most Recent Tobacco Screening? 04/12/2022 [email or web address] Information not available 04/12/2022 Sex: Unknown Functional Status Question Answer Note LastModified by Organization D etails LastModified Time Do you or have you ever used any other forms of tobacco or nicotine? No [email or web address] Information not available 12/16/2020 Mental Status None recorded. Family History Relationship [...] Time SARS-COV-2 (COVID-19) vaccine, UNSPECIFIED 05/14/2020 completed Danikajez Rosario [facility] 12/16/2020 14:58:35 SARS-COV-2 (COVID-19) vaccine, UNSPECIFIED 06/04/2020 completed Danika Rosario [facility] 12/16/2020 14:58:47 Past Encounters Encounter ID Performer Location Encounter Start Date Encounter Closed Date Diagnosis/Indication Diagnosis SNOMED-CT Code Diagnosis ICD10 Code Diagnosis Note [id number] KEVIN PATTON PA-C [facility] [address] [place] [address] 06/27/2019 11:02:18 06/27/2019 13:46:10 Routine gynecologic examination done 8498476981 9101 Z01.419 Screening for malignant neoplasm of cervix 968964823 Z12.4 Infection screening 2437 61632 Z11.51 [id number] JAIDA ALLEN PA-C [facility] [address] [place] [address] 12/16/2020 14:47:27 12/16/2020 16:38:41 Anemia 695378458 D64.9 Will recheck labs. Await these results. Fatigue 72043396 R53.83 Migraine 52451005 G43.90 9 trial of topamax as directed. We can advance strength as needed. [id number] AAKASH BAIG MD [facility] [address] [place] [address] 05/11/2021 09:09:38 05/11/2021 10:58:11 Dysmenorrhea 361070942 N94.6 Patient has some mild somewhat dysmenorrh [...] in that currently. Abnormal u terine bleeding 9314042499 9100 N93.9 Patient with an episode of [...] will return I will do a biopsy. [id number] AAKASH BAIG MD [facility] [address] [place] [address] 04/12/2022 13:56:49 04/12/2022 15:26:48 Abnormal uterine bleeding 5251775437 9100 N93.9 endometria l bx done. AUB [...] Recorded Advance Directives Directive None Recorded Payers Insurance Date Sequence Insurance Name Policy Number Policy Villarreal Covered Member ID Villarreal Member ID Guarantor Name 04/27/2022 1 [employer]ANE[employer]ISELA (PPO) [id number] 3 Marielena Lugo [id number] Marielena Lugo 04/28/2022 1 [employer] (POS) [id number] Abbe Lugo [id number] Marielena Lugo Notes Date Note Type Note [...] this is all perimenopausal KEVIN PATTON PA-C [address] [place], [address], [place] [facility] 06/27/2019 12:36:34 12/16/2020 text/html Pt comes in to jhonathan. She has been fatigued lately, and had some labs that showed a low ferritin but nothing else. She eats and sleeps well. 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 Her stress level is much lower than it used to be when she was working.She does have migraines. These can be debilitating. SHe is interested in trying topamax for prevention. JAIDA ALLEN PA-C [address] [place], [address], [facility] 12/19/2020 22:33:16 05/11/2021 text/html 46 y/o ( 2) referral from Merly here today for an ultrasound and possible EMB for AUB. Merly also mentioned to discuss ablation. Reference pt. case 04/30/2021. 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 AAKASH BAIG MD [address] [place], [address], [facility] 05/11/2021 10:25:55 04/12/2022 text/html 47 y/o here toda y for EMB for AUB. per patient case 04/11/2022- patient having bleeding for one month. same issue as when she was seen 05/11/2021.Provera given to patient- has not started yet because she thought she was slowing down on the bleeding. 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 Patient was taking Vitrex and assuming that [...] a functional medicine doctor. AAKASH BAIG MD [facility] [place], [address], [facility] 04/12/2022 14:42:32 OBGyn Episode No OBEpisode recorded.
[2024-11-12 16:55] LABS: Hematocrit 40.6 % (37.0-47.0); Hemoglobin 14.0 g/dL (12.2-16.2); Immature Granulocytes % 0.2 %; Mean Corpuscular HGB Conc 34.5 g/dL (31.8-35.4); Mean Corpuscular Hemoglobin 32.1 pg (27.0-31.2); Mean Corpuscular Volume 93.1 fl (81-99); Nucleated Red Blood Cells % 0 %; Platelet Count 245 K/mm3 (142-424); Red Blood Count 4.36 M/mm3 (4.20-5.40); Red Cell Distribution Width-SD 39.3 fL; White Blood Count 4.9 K/mm3 (4.8-10.8)
[2024-11-12 17:13] LABS: Chloride 97 mmol/L (98-107)
[2024-11-12 17:14] LABS: Potassium 3.6 mmoL/L (3.5-5.1); Sodium 134 mmol/L (136-145)
[2024-11-12 17:17] LABS: Anion Gap 10.6 mEq/L (5-15); Blood Urea Nitrogen 17 mg/dl (7-17); Calcium 9.6 mg/dl (8.4-10.2); Carbon Dioxide 30 mmol/L (22.0-30.0); Creatinine,Serum 0.70 mg/dl (0.52-1.04); Estimated Glomerular Filt Rate 89 ml/min (>60); GFR (African American) 108 ML/MIN (>60); Glucose 80 mg/dl (74-100); Iron 101 ug/dL (37-170)
[2024-11-12 17:27] LABS: Total Iron Binding Capacity 324 ug/dL (265-497)
[2024-11-12 17:56] LABS: Ferritin 21.9 ng/ml (6.24-137)
== END 2024-11-12 23:59 | disposition home or self-care (01) ==
LOC: LAB 16:29
PROVIDERS: PCP Nurse Practitioner Family; Visit Provider Nurse Practitioner Family
DX: D72.819 Decreased white blood cell count, unspecified (principal); E61.1 Iron deficiency
CPT/HCPCS: 36415; 80048; 82728; 83540; 83550; 85025

== ENCOUNTER 2025-02-18 11:14 | Outpatient (CLI) | payer BC, SELFPAY ==
--- OUTSIDE RECORDS SUMMARY | 2025-02-18 11:16 | XMS_ITS | Clinical Summary ---
Author Organization [facility] ystem Address [address] [place] [address] Care Team Providers Care Case Preparer And Liner Name Role Phone Unavailable Primary Care Provider [...] TEST 02/24/2020 FIT Testing (1 year) 02/24/2020 INFLUENZA VACCINE 11/22/2024 Pneumococcal Vaccine 0-49 Aged Out No longer eligible based on patient's age to complete this topic
--- OUTSIDE RECORDS SUMMARY | 2025-02-18 11:16 | XMS_ITS ---
Author Organization Unknown ENCOUNTERS Encounter Performer Location Date Diagnosis Diagnosis Status Emergency [place] [facility] [address] [place] [address] [id number] YESY Emergency Lizzy Ralph [address] [place] [place] [address] [id number] YESY *Note: Encounters from your own facility or health system may be excluded. Allergies, Adverse Reactions, Alerts Allergen Type Severity Identification Date Medications Name Date Quantity Days Supplied GPI Number
--- OUTSIDE RECORDS SUMMARY | 2025-02-18 11:16 | XMS_ITS | Encounter Summary ---
Author Organization [facility] Address [address] [place] [address] Care Team Providers Care Rod Tape Operator Name Role Phone Cristine Patton APRN Primary Care Provider [phone] Encounter Details Date Type Department Care Team (Latest Contact Info) Description 09/03/2021 Community [facility] [address] [place] [address] Zaina Gaines APRN [address] [address] Lymphadenopathy (Primary Dx) Social History [...] nodes documented in this encounter Care Teams Rod Tape Operator Relationship Specialty Start Date End Date Cristine Patton APRN [address] [place] [address] PCP - General 09/04/20 documented as of this encounter
--- OUTSIDE RECORDS SUMMARY | 2025-02-18 11:16 | XMS_ITS | Clinical Summary ---
Author Organization [facility] Address [address] [place] [address] Care Team Providers Care Processor Grain Name Role Phone PoojaCristine camejo Nichelle ORTA Primary Care Provider +1- [phone] Allergies No known active allergies Immunizations Immunization [...] 02/24/2020 Sigmoidoscopy 02/24/2020 [facility]-Colorectal Cancer Screening 02/24/2020 [id number] Vaccine (2024- season) 2024 03/01/2022, 03/22/2021, 05/18/2020, Additional history exists [facility]-Influenza [...] Narrative SUNQUEST - 03/17/2002 4:44 PM EST [facility] MR #: [facility] [address] [place], [place] [address] 1975 (Age: 27) FW Collect Date: 03/11/2002 00:00 Receipt Date: 03/12/2002 08:35 Page 1 DEPARTMENT OF PATHOLOGY AND LABORATORY MEDICINE CYTOPATHOLOGY REPORT Email: [email or web address] MD/Practitioner: Amy Young CNM Service: KILN BURNER HELPER Location: [facility] Reported: 03/17/2002 16:44 Collected: 03/11/2002 00:00 INTERPRETATION [...] results is suggested (please call Microbiology at [phone] for results). CLINICAL INFORMATION: Menstrual History: Cyclic Date of Last Menstrual Period: 03 04 02 Contraceptive History: control pills SPECIMEN DESCRIPTION: A: CERVICAL/VAGINAL PAP SMEAR SMEARS: PAP STAIN ICD: V76.2 CERVIX, SPECIAL SCREENING FOR MALIGNANT NEOPLASM F: A; 74781 SCREEN SNOMED CODES: A; [id number] In cases where a pathologist has signed out the report, the service has been rendered in part by a resident. The signing pathologist has performed and is responsible for the reported pathologic evaluation. Historical Provider LAB PATHOLOGY ORDERABLES Fin al Result SUNQUEST from Last 3 Months or Most Recently Relevant to Health Maintenance Insurance ANTHEM Care Teams Processor Grain Relationship Specialty Start Date End Date Cristine Patton APRN [address] [place] [address] PCP - General 09/04/20
--- NOTE | 2025-02-18 11:18 | XR_ITS ---
FINAL REPORT CLINICAL HISTORY: RIGHT HIP PAIN COMPARISON: None FINDINGS: RIGHT HIP Two views of the right hip with an AP view of the pelvis demonstrate no acute fracture or dislocation. The joint spaces appear normal. The visualized bony structures are well aligned. No soft tissue abnormality is seen. IMPRESSION: No acute bony abnormality. Reviewed, Interpreted and Dictated by Jacoby Osman MD Transcribed by Licha Tan Authenticated and [facility]
== END 2025-02-18 23:59 | disposition home or self-care (01) ==
LOC: RAD 11:14
PROVIDERS: PCP Nurse Practitioner Family; Visit Provider Nurse Practitioner Family
DX: M25.551 Pain in right hip (principal)
CPT/HCPCS: 73502

== ENCOUNTER 2025-02-24 07:38 | Outpatient (CLI) | payer BC, SELFPAY ==
--- NOTE | 2025-02-24 07:30 | US_ITS ---
PROCEDURE: US TRANSVAGINAL CLINICAL INDICATION: 6 month f/u; AUB COMPARISON: US US TRANSVAGINAL from 06/07/2023 US US TRANSVAGINAL from 08/23/2024 FINDINGS: Transvaginal sonographic images of the pelvis were obtained. UTERUS: 8.0cm x 4.3cmx 3.6cm anteverted with a combined endometrial thickness of 6.8mm. The previously described cystic areas adjacent to the endometrium are no longer present. There continues to be what appears to be a hyperechoic collection in the lower uterine segment/upper cervix. It measures 1.7 x 1.0 cm. There is posterior shadowing. There are at least 2 nabothian cysts in the upper cervix. LEFT OVARY: 3.1cmx2.3cmx1.9cm with a volume of 7ml. Follicle 1. 1.42 cm. Follicle 2. 1.02 cm RIGHT OVARY: 2.1 cmx 1.5cmx1.3cm with a volume of 2.1ml. Both ovaries are seen and appear normal. Doppler flow to both ovaries are seen. There is no fluid in the cul-de-sac. IMPRESSION: 1. Anteverted uterus normal in shape and size. The endometrium is normal measuring 6.8 mm. 2. There is a hyperechoic collection in the lower uterine segment/upper cervix that could be mucous. It is similar in size and appearance to her previous ultrasound 08/23/2024. A pathologic lesion cannot be ruled out although less likely. See images 7 and 14. 3. Both ovaries are seen and appear normal. The left ovary contains 2 follicles. 4. No fluid in the cul-de-sac. Dictated by: Soy Mosqueda MD 02/24/2025 10:49 Soy Mosqueda MD in OV 02/24/2025 10:49
--- OUTSIDE RECORDS SUMMARY | 2025-02-24 07:40 | XMS_ITS | Clinical Summary ---
Author Organization [facility] Address [address] [place] [address] Care Team Providers Care Keyboard Action Assembler Name Role Phone PoojaCristine camejo Nichelle ORTA Primary Care Provider +1- [phone] Allergies No known active allergies Immunizations Immunization [...] 02/24/2020 Sigmoidoscopy 02/24/2020 [facility]-Colorectal Cancer Screening 02/24/2020 [id number] Vaccine (2024- season) 2024 03/01/2022, 03/22/2021, 05/18/2020, Additional history exists [facility]-Influenza Vaccine (#1) 12/23/202403/01, 04/27/2021, 03/13/2020, Additional history exists [facility]-Pneumococcal Vaccine: 50+ Years (1 of 1 - PCV) 2025 [facility]-Zoster Vaccines (1 of 2) 2025 [facility]-Breast Cancer Screening 03/14/202602/23, 01/13/2023, 12/17/2021, Additional history exists [facility]-DTaP,Tdap,and Td Vaccines (3 - Td or [...] Procedure Name Priority Date/Time Associated Diagnosis Comments MAMMOGRAPHY BREAST SCREENING TOMOSYNTHESIS BILATERAL Routine 03/14/2024 7:34 AM EST Visit for screening mammogram CYTO DATA CONVERSION Routine 03/11/2002 12:00 AM EST from Last 3 Months or Most Recently Relevant to Health Maintenance Results * Mammography Breast Screening Tomosynthesis Bilateral (03/14/2024 7:34 AM EST) Anatomical Region Laterality Modality Breast Bilateral Mammography Impressions 03/18/2024 3:39 PM EST No mammographic evidence of malignancy. BI-RADS CATEGORY: Overall: 1 - Negative RECOMMENDATION: - Routine Screening Mammogram in 1 Year. Patient Lifetime Risk Score of Breast Malignancy: 6.0% This risk assessment is calculated using the Dana Risk Assessment model which may underestimate the lifetime risk of breast malignancy. COMMUNICATION: Computer-aided detection (CAD) and tomosynthesis were utilized by the radiologist in the interpretation of this examination. The results and recommendations will be sent to the patient in a printed lay language version of the imaging report. Narrative 03/18/2024 3:39 PM EST EXAM: Mammography Breast Screening with Tomosynthesis REASON FOR EXAM: Screening Mammogram HISTORY: Patient is 49 y.o. Family medical history includes breast cancer in paternal grandmother and colon cancer in paternal great-grandfather. Hormone history includes control (10 years) and hormone replacement therapy (combination patch). Surgical and procedural history include left breast biopsy, 2016 (us core needle biopsy- benign ). COMPARISON STUDIES: Compared to: 05/24/2017 Mammography Additional Views at [facility] 06/29/2018 Mammography Breast Screening Tomosynthesis Bilateral at [facility] 10/10/2019 Mammography Breast Screening Tomosynthesis Bilateral at [facility] 10/19/2020 Mammography Breast Screening Tomosynthesis Bilateral at [facility] 12/17/2021 Mammography Breast Screening Tomosynthesis Bilateral at [facility] 01/13/2023 Mammography Breast Screening Tomosynthesis Bilateral at [facility] BREAST COMPOSITION: The breasts are heterogeneously dense, which may obscure small masses. FINDINGS: There are no suspicious masses, calcifications, or areas of architectural distortion. Cristine Patton APRN IMG BI PROCEDURES Final Re sult * Cytology (03/11/2002 12:00 AM EST) 03/11/2002 03/12/2002 8:3 5 AM EST Narrative SUNQUEST - 03/17/2002 4:44 PM EST [facility] MR #: [facility] [address] [place], [place] [address] 1975 (Age: 27) FW Collect Date: 03/11/2002 00:00 Receipt Date: 03/12/2002 08:35 Page 1 DEPARTMENT OF PATHOLOGY AND LABORATORY MEDICINE CYTOPATHOLOGY REPORT Email: [email or web address] ATTENDING MD/Practitioner: Amy Young CNM Service: INCOME TAX RETURN PREPARER Location: [facility] Reported: 03/17/2002 16:44 Collected: 03/11/2002 00:00 [...] results is suggested (please call Microbiology at [phone] for results). CLINICAL INFORMATION: Menstrual History: Cyclic Date of Last Menstrual Period: 03 04 02 Contraceptive History: control pills SPECIMEN DESCRIPTION: A: CERVICAL/VAGINAL PAP SMEAR SMEARS: PAP STAIN ICD: V76.2 CERVIX, SPECIAL SCREENING FOR MALIGNANT NEOPLASM F: A; 82771 SCREEN SNOMED CODES: A; [id number] In cases where a pathologist has signed out the report, the service has been rendered in part by a resident. The signing pathologist has performed and is responsible for the reported pathologic evaluation. us Historical Provider LAB PATHOLOGY ORDERABLES Fin al Result SUNQUEST from Last 3 Months or Most Recently Relevant to Health Maintenance Insurance ANTHEM Care Teams Keyboard Action Assembler Relationship Specialty Start Date End Date Cristine Patton APRN [address] [facility] [place] [address] PCP - General 09/04/20
--- OUTSIDE RECORDS SUMMARY | 2025-02-24 07:41 | XMS_ITS | Encounter Summary ---
Author Organization [facility] Address [address] [place] [address] Care Team Providers Care Destination Coordinator Name Role Phone Cristine Patton APRN Primary Care Provider +1- [phone] Encounter Details Date Type Department Care Team (Latest Contact Info) Description 09/03/2021 Community [facility] [address] [place] [address] Zaina Gaines APRN [address] [address] Lymphadenopathy (Primary Dx) Social History [...] nodes documented in this encounter Care Teams Destination Coordinator Relationship Specialty Start Date End Date Cristine Patton APRN [address] [place] [address] PCP - General 09/04/20 documented as of this encounter
--- OUTSIDE RECORDS SUMMARY | 2025-02-24 07:41 | XMS_ITS | Clinical Summary ---
Author Organization [facility] Address [address] [place] [address] Care Team Providers Care Supervisor Hospitality House Name Role Phone Unavailable Primary Care Provider [...]
--- OUTSIDE RECORDS SUMMARY | 2025-02-24 07:41 | XMS_ITS | Data Portability ---
Author Organization [facility] CLOS[facility] Address [address] [place] [address] Assessment Encounter Date Assessment Date Assessment LastModified by Organization Details LastModified Time 12/13/2024 12/13/2024 labs reviewed w/ her i rec against statin her ascvd risk is .7% with neg cardiac calcium score and nl apo levels. [email or web address] Not available 12/13/2024 09:35:03 Plan of Treatment Reminders Order Date Submit Date Provider Last Modified By Organization Details Last Modified Time Details Appointments RECHECK 2025 08:30A M LAURA BAUGH MD Not available Not available Not available Lab surgical pathology study 2021 022 [facility], [address] [place] [address], [address], 04/14/2022 11:05:02 ferritin, serum or plasma 2020 021 [facility], [address] [place] [address], [address], 12/16/2020 17:36:41 iron + total iron-bind ing capacity (TIBC), serum 2020 021 [facility], [address] [place] [address], [address], 12/16/2020 17:36:38 vitamin B12 + folate, serum or blood 2020 021 [facility], [address] [place] [address], [address], 12/16/2020 17:36:10 CBC w/ auto diff 2020 021 [facility], [address] [place] [address], [address], 12/16/2020 17:16:52 CMP, serum or plasma 2020 021 [facility], [address] [place] [address], [address], 12/16/2020 17:36:40 T4, free, serum 2020 021 [facility], [address] [place] [address], [address], 12/16/2020 17:36:42 TSH, serum or plasma 2020 021 [facility], [address] [place] [address], [address], 12/16/2020 17:36:45 vitamin D, 25-hydrox y, total, serum 2020 021 [facility], [address] [place] [address], [address], 12/16/2020 17:36:53 magnesium , QN, serum or plasma 2020 021 [facility], [address] [place] [address], [address], 12/16/2020 17:36:44 cytology, vaginal/c ervical 2019 020 [facility], [address] [place] [address], [address], 07/03/2019 12:21:48 HPV DNA, high-risk 2019 020 [facility], [address] [place] [address], [address], 07/01/2019 17:24:25 Referral None recorded. Procedures None recorded. Surgeries None recorded. Imaging None recorded. Medication Orders topiramat e 25 mg tablet 2020 021 [email or web address] [id number], [address] [address] [place], [id number], 05/11/2021 09:22:45 Patient TargetsNo targets recorded. Patient Instructions Encounter Date Encounter Id Patient Instructions Last Modified By Organization Details Last Modified Time 06/27/2019 [id number] learning about cervical cancer screening Not available [...] Abnormal Flag Note LastModifiedBy Organization Detail LastModifiedTime 06/27/19 20 07/01/2019 HPV DNA, high- risk high risk HPV Not Detect ed not detect ed normal This test was perfo rmed using the APTIM A HPV Assay ([employer] . This assay detec ts E6/E7 viral messe nger RNA (mRNA ) from 14 high- risk HPV types (16,1 8,31, 33,35 ,39,4 5,51, 52,56 ,58,5 9,66, 68). The gideon tical perfo rmanc e joseph cteri stics of this assay have been deter mined by [facility]. The modif icati ons have not been clear ed or appro luzmaria by the FDA. This assay has been valid ated pursu ant to the CLIA regul ation s and is used for clini dev purpo ses. TEST PERFO RMED AT: [facility] [place] [facility] [address] [facility] [place] [address] WALE Wolf MD Not Available [facility] [address] [facility], [place], [address], 07/01/2019 17:24:25 06/27/19 20 06/27/2019 cytol ogy, vagin al/ce rvica l Pap smear SEE BELOW Depar tment of Patho logy GYNEC OLOGI DEV CYTOL OGY REPOR T NAME: [facility] PATHO LOGY NO.: [id number] Copy to: SOURC E OF SPECI MEN: CERVI DEV/E NDOCE [...] cervi dev cance r scree huan of [facility] rep(R ) Pap test slide s. Page 1 of 1 Not Available [facility] [address] [place] [address], [address], 07/03/2019 12:21:48 12/17/19 21 12/16/2020 COMPL ETE BLOOD COUNT white blood cells 5.2 K/uL 3.8-10 .8 normal Not Available [facility] [address] [place] [address], [address], 12/16/2020 17:16:52 12/17/19 21 12/16/2020 COMPL ETE BLOOD COUNT red blood cells 4.02 M/uL 3.80-5 .20 normal Not Available [facility] [address] [place] [address], [address], 12/16/2020 17:16:52 12/17/19 21 12/16/2020 COMPL ETE BLOOD COUNT hemoglobin 13.0 g/dL 12.0-1 6.0 normal Not Available [facility] [address] [place] [address], [address], 12/16/2020 17:16:52 12/17/19 21 12/16/2020 COMPL ETE BLOOD COUNT hematocrit 37.5 % 35.0-4 7.0 normal Not Available [facility] [address] [place] [address], [address], 12/16/2020 17:16:52 12/17/19 21 12/16/2020 COMPL ETE BLOOD COUNT MCV 93 fL 80-100 normal Not Available [facility] [address] [place] [address], [address], 12/16/2020 17:16:52 12/17/19 21 12/16/2020 COMPL ETE BLOOD COUNT MCH 32 pg 26-35 normal Not Available [facility] [address] [place] [address], [address], 12/16/2020 17:16:52 12/17/19 21 12/16/2020 COMPL ETE BLOOD COUNT MCHC 35 g/dL 32-36 normal Not Available [facility] [address] [place] [address], [address], 12/16/2020 17:16:52 12/17/19 21 12/16/2020 COMPL ETE BLOOD COUNT RDW 12.8 % 11.0-1 5.0 normal Not Available [facility] [address] [place] [address], [address], 12/16/2020 17:16:52 12/17/19 21 12/16/2020 COMPL ETE BLOOD COUNT MPV 7.1 fL 6.2-10 .5 normal Not Available [facility] [address] [place] [address], [address], 12/16/2020 17:16:52 12/17/19 21 12/16/2020 COMPL ETE BLOOD COUNT platelet count 268 K/uL 130-40 0 normal Not Available [facility] [address] [place] [address], [address], 12/16/2020 17:16:52 12/17/19 21 12/16/2020 COMPL ETE BLOOD COUNT neutrophil,a bsolute 2.4 K/uL 1.6-8. 4 normal Not Available [facility] [address] [place] [address], [address], 12/16/2020 17:16:52 12/17/19 21 12/16/2020 COMPL ETE BLOOD COUNT lymphocyte,a bsolute 2.1 K/uL 0.4-5. 1 normal Not Available [facility] [address] [place] [address], [address], 12/16/2020 17:16:52 12/17/19 21 12/16/2020 COMPL ETE BLOOD COUNT monocyte,abs olute 0.6 K/uL 0.0-1. 2 normal Not Available [facility] [address] [place] [address], [address], 12/16/2020 17:16:52 12/17/19 21 12/16/2020 COMPL ETE BLOOD COUNT eosinophil,a bsolute 0.1 K/uL 0.0-0. 8 normal Not Available [facility] [address] [place] [address], [address], 12/16/2020 17:16:52 12/17/19 21 12/16/2020 COMPL ETE BLOOD COUNT basophil,abs olute 0.0 K/uL 0.0-0. 3 normal Not Available [facility] [address] [place] [address], [address], 12/16/2020 17:16:52 12/17/19 21 12/16/2020 COMPL ETE BLOOD COUNT % neutrophils 45.3 % 42.0-7 8.0 normal Not Available [facility] [address] [place] [address], [address], 12/16/2020 17:16:52 12/17/19 21 12/16/2020 COMPL ETE BLOOD COUNT % lymphocytes 39.7 % 11.0-4 7.0 normal Not Available [facility] [address] [place] [address], [address], 12/16/2020 17:16:52 12/17/19 21 12/16/2020 COMPL ETE BLOOD COUNT % monocytes 12.4 % 0.0-11 .0 high Not Available [facility] [address] [place] [address], [address], 12/16/2020 17:16:52 12/17/19 21 12/16/2020 COMPL ETE BLOOD COUNT % eosinophils 2.1 % 0.0-7. 0 normal Not Available [facility] [address] [place] [address], [address], 12/16/2020 17:16:52 12/17/19 21 12/16/2020 COMPL ETE BLOOD COUNT % basophils 0.5 % 0.0-3. 0 normal Not Available [facility] [address] [place] [address], [address], 12/16/2020 17:16:52 12/17/19 21 12/16/2020 COMPL ETE BLOOD COUNT nucleated red cells 0.0 % 0.0-0. 9 normal Not Available [facility] [address] [place] [address], [address], 12/16/2020 17:16:52 12/17/19 21 12/16/2020 COMPL ETE BLOOD COUNT nucleated RBCs, absolute 0.00 K/uL not estab. normal Not Available [facility] [address] [place] [address], [address], 12/16/2020 17:16:52 12/17/19 21 12/16/2020 B12/F OLIC ACID PANEL folic acid >20.0 NG/mL 4.6-34 .8 normal Not Available [facility] [address] [place] [address], [address], 12/16/2020 17:36:10 12/17/19 21 12/16/2020 B12/F OLIC ACID PANEL vitamin B12 1275 pg/mL 232-12 45 high Not Available [facility] [address] [place] [address], [address], 12/16/2020 17:36:10 12/17/19 21 12/16/2020 IRON PANEL -TOTA L AND TIBC iron 72 ug/dL 37-145 normal Not Available [facility] [address] [place] [address], [address], 12/16/2020 17:36:38 12/17/19 21 12/16/2020 IRON PANEL -TOTA L AND TIBC total iron binding cap. 344 ug/dL _(dev c) 250-45 0 normal Not Available [facility] [address] [place] [address], [address], 12/16/2020 17:36:38 12/17/19 21 12/16/2020 IRON PANEL -TOTA L AND TIBC unsat.iron binding cap. 272 ug/dL 112-34 7 normal Not Available [facility] [address] [place] [address], [address], 12/16/2020 17:36:38 12/17/19 21 12/16/2020 IRON PANEL -TOTA L AND TIBC % saturation 21 %_(ca lc) 15-50 normal Not Available [facility] [address] [place] [address], [address], 12/16/2020 17:36:38 12/17/19 21 12/16/2020 COMP. METAB OLIC PANEL glucose 82 mg/dL 74-100 normal Not Available [facility] [address] [place] [address], [address], 12/16/2020 17:36:40 12/17/19 21 12/16/2020 COMP. METAB OLIC PANEL blood urea nitrogen 13 mg/dL 6-20 normal Not Available [facility] [address] [place] [address], [address], 12/16/2020 17:36:40 12/17/19 21 12/16/2020 COMP. METAB OLIC PANEL creatinine 0.76 mg/dL 0.50-0 .95 normal Not Available [facility] [address] [place] [address], [address], 12/16/2020 17:36:40 12/17/19 21 12/16/2020 COMP. METAB OLIC PANEL BUN/creatini ne ratio 17 (calc ) 10-20 normal Not Available [facility] [address] [place] [address], [address], 12/16/2020 17:36:40 12/17/19 21 12/16/2020 COMP. METAB OLIC PANEL sodium 137 mmol/ L 136-14 5 normal Not Available [facility] [address] [place] [address], [address], 12/16/2020 17:36:40 12/17/19 21 12/16/2020 COMP. METAB OLIC PANEL potassium 3.5 mmol/ L 3.4-5. 0 normal Not Available [facility] [address] [place] [address], [address], 12/16/2020 17:36:40 12/17/19 21 12/16/2020 COMP. METAB OLIC PANEL chloride 101 mmol/ L 98-107 normal Not Available [facility] [address] [place] [address], [address], 12/16/2020 17:36:40 12/17/19 21 12/16/2020 COMP. METAB OLIC PANEL carbon dioxide 22 mmol/ L 22-31 normal Not Available [facility] [address] [place] [address], [address], 12/16/2020 17:36:40 12/17/19 21 12/16/2020 COMP. METAB OLIC PANEL anion gap 14 (calc ) 7-25 normal Not Available [facility] [address] [place] [address], [address], 12/16/2020 17:36:40 12/17/19 21 12/16/2020 COMP. METAB OLIC PANEL calcium 9.5 mg/dL 8.6-10 .2 normal Not Available [facility] [address] [place] [address], [address], 12/16/2020 17:36:40 12/17/19 21 12/16/2020 COMP. METAB OLIC PANEL total protein 8.0 g/dL 6.4-8. 3 normal Not Available [facility] [address] [place] [address], [address], 12/16/2020 17:36:40 12/17/19 21 12/16/2020 COMP. METAB OLIC PANEL albumin 4.8 g/dL 3.5-5. 2 normal Not Available [facility] [address] [place] [address], [address], 12/16/2020 17:36:40 12/17/19 21 12/16/2020 COMP. METAB OLIC PANEL globulin 3.2 g/dL_ (calc ) 1.5-4. 5 normal Not Available [facility] [address] [place] [address], [address], 12/16/2020 17:36:40 12/17/19 21 12/16/2020 COMP. METAB OLIC PANEL albumin/glob ulin ratio 1.5 (calc ) 1.1-2. 5 normal Not Available [facility] [address] [place] [address], [address], 12/16/2020 17:36:40 12/17/19 21 12/16/2020 COMP. METAB OLIC PANEL bilirubin, total 0.3 mg/dL 0.1-1. 2 normal Not Available [facility] [address] [place] [address], [address], 12/16/2020 17:36:40 12/17/19 21 12/16/2020 COMP. METAB OLIC PANEL alkaline phosphatase 65 U/L 35-106 normal Not Available [facility] [address] [place] [address], [address], 12/16/2020 17:36:40 12/17/19 21 12/16/2020 COMP. METAB OLIC PANEL AST 17 U/L 0-32 normal Not Available [facility] [address] [place] [address], [address], 12/16/2020 17:36:40 12/17/19 21 12/16/2020 COMP. METAB OLIC PANEL ALT 18 U/L 0-33 normal Not Available [facility] [address] [place] [address], [address], 12/16/2020 17:36:40 12/17/19 21 12/16/2020 COMP. METAB OLIC PANEL GFR 109 >= 60 normal Not Available [facility] [address] [place] [address], [address], 12/16/2020 17:36:40 12/17/19 21 12/16/2020 COMP. METAB [...] pedia tric patie nts refer to [facility] [employer] ation [email or web address] :[email or web address] rg/pr ofess ional s/KDO QI/gf r_cal culat orPed Not Available [facility] [address] [place] [address], [address], 12/16/2020 17:36:40 12/17/19 21 12/16/2020 RUIZ TIN ferritin 42 NG/mL 13-157 normal Not Available [facility] [address] [place] [address], [address], 12/16/2020 17:36:41 12/17/19 21 12/16/2020 T4,FR EE T4,free 1.11 NG/dL 0.93-1 .70 normal Not Available [facility] [address] [place] [address], [address], 12/16/2020 17:36:42 12/17/19 21 12/16/2020 MAGNE SIUM magnesium 2.2 mg/dL 1.6-2. 6 normal Not Available [facility] [address] [place] [address], [address], 12/16/2020 17:36:44 12/17/19 21 12/16/2020 TSH TSH 1.110 uIU/m L 0.270- 4.200 normal Not Available [facility] [address] [place] [address], [address], 12/16/2020 17:36:45 12/17/19 21 12/16/2020 VITAM IN D 25-OH vitamin D 25-oh, total 48 NG/mL >=30 NG/mL normal Not Available [facility] [address] [place], [address], 12/16/2020 17:36:53 04/12/20 22 04/12/2022 SURGI DEV surgical SEE BELOW Depar tment of Patho logy Surgi dev Patho logy Repor t NAME: MARIELENA LAKE PATH. :[id number] Copy to: Diagn osis: Endom etria l biops y: - Disor dered proli ferat trinity endom etriu m with beverly al break down jesus es - Negat trinity for endom etria l hyper plasi a and malig kaylen SOURC E OF SPECI MEN: ENDOM ETRIA L BIOPS Y CLINI DEV INFOR MATIO N: N93.9 Gross Descr iptio n: Recei luzmaria in forma tremayen label ed with the patie nt's name [...] c exami natio n perfo rmed. BIB BETANCUR-Beth MASSEY MD Pau d Out Date: 04/14 11:03 Page 1 of 1 Not Available [facility] [address] [place], [address], 04/14/2022 11:05:02 12/12/19 21 12/11/2020 US, trans vagin al [facility] [address] [place] [address], [place] [id number] Patien t Name: MARIELENA Steward Patikari t : [phone] Patien t Orderi ng Provid er: JENNIFER PATTON EXAM DATE: 2020 EXAM: US PELVIS [facility] TRANSV AGINAL CLINIC AL INFORM ATION: Left [...] Broussard MD on 021 2:12 PM [facility] [address] [place], [address], 12/11/2020 15:18:24 05/13/19 22 05/11/2021 US, trans vagin al No observ ation record ed. BARCODE Not Available 2021 11:16:23 Result Notes None recorded. Problems No Known Problems Procedures Surgical History Date Name Laterality Status Provider Name and Address Organization Details Recorded Time 04/12/20 22 Biopsy Endometrial completed AAKASH BAIG MD [address] [place], [address], [facility] 04/12/2022 14:28:29 05/11/19 22 Transvaginal Ultrasound; Non-OB completed AAKASH BAIG MD [address] [place], [address], [facility] 05/11/2021 10:24:12 06/27/19 20 Date of Last Pap Smear completed Kaylynn Ortiz [facility] 07/04/2019 15:44:54 fasciectomy completed Tree Gaines [facility] 05/11/2021 09:25:39 Imaging Results None recorded. Procedure [...] completed Not Available Not Available Not Available buspirone 10 mg tablet Take 1 tablet every day by oral route. active Not Available Not Available No t Available Provera 10 mg tablet Take 1 tablet every day by oral route for 14 days. 12/13 completed Not Available Not Available Not Available topiramate 100 mg tablet Take 1 tablet every day by oral route. 12/13 completed Not Available Not Available Not Available Lexapro 10 mg tablet Daily 12/13 completed Duration : 30 days;Milton quency: daily;Me dication Descript ion: escitalo pram; Dosage:1 ; Route:or al; refills: 5; Quantity :30 tablet Not Available Not Available Not Available Lexapro 20 mg tablet Take 1 tablet every day by oral route. active Not Available Not Available No t Available topiramate 50 mg tablet Take 1 tablet every day by oral route at bedtime . 05/11 completed Not Available Not Available Not Available estradiol active patch Not Available Not Lamar ilable Not Available progestero ne active Not Available Not Available Not Available Vitals Date Recorded Body height Body mass index (BMI) Body weight Systolic And Diastolic Provider Name and Address Organization Details Last Updated DateTime 05/11/2021 160.02 cm 22.1 kg/m2 02984.05 g 112/74 mm[Hg] Tree Gaines [facility] 05/11/2021 09:27:56 Date Recorded Body weight Systolic And Diastolic Provider Name and Address Organization Details Last Updated DateTime 06/27/2019 15550.23 g 120/70 mm[Hg] Baldemar De La Fuente [facility] 06/27/2019 11:05:14 Date Recorded Body height Body mass index (BMI) Body weight Heart rate Oxygen saturation Oxygen saturation in Arterial blood by Pulse oximetry Systolic And Diastolic Provider Name and Address Organization Details Last Updated DateTime 5 160.02 cm 23.4 kg/m2 39279.2 9 g 64 /min 98 % 98 % 114/80 mm[Hg] Nicholas Mariely [facility] 5 08:38:37 Date Recorded Body weight Body mass index (BMI) Body height Heart rate Oxygen saturation Oxygen saturation in Arterial blood by Pulse oximetry Systolic And Diastolic Provider Name and Address Organization Details Last Updated DateTime 1 93993.4 2 g 22.9 kg/m2 160.02 cm 71 /min 99 % 99 % 124/80 mm[Hg] Danika Rosario [facility] 1 15:00:29 Date Recorded Body height Body mass index (BMI) Body weight Provider Name and Address Organization Details Last Updated DateTime 04/12/2022 160.02 cm 22.8 kg/m2 97859.01 g Barbie Marroquin [facility] 04/12/2022 14:05:56 Social History Question Answer Notes LastModified by Organizat ion Details LastModified Time Tobacco Smoking Status Never Smoker Baldemar De La Fuente [facility] 06/27/2019 11:08:19 What Was The Date Of Your Most Recent Tobacco Screening? 12/13/2024 [email or web address] Information not available 12/13/2024 What Is Your Relationship Status? [email or web address] Information not available 12/13/2024 Sex: Unknown Functional Status Question Answer Note [...] Paternal Grandmother Family history of malignant neoplasm [email or web address] Not available 2024 08:31:26 Medical History No medical history recorded. Gynecological [...] e and Address Organization Details Recorded Time Influenza, split virus, quadrivalent, preservative 8 completed Not Available [facility] 12/13/2024 08:32:28 Tdap 9 completed Not Available [facility] 12/13/2024 08:32:28 Influenza, split virus, quadrivalent, PF 9 completed Not Available [facility] 12/13/2024 08:32:28 Influenza, recombinant, quadrivalent, PF 0 completed Not Available [facility] 12/13/2024 08:32:28 COVID-19, mRNA, LNP-S, PF, 100 mcg/0.5mL dose or 50 mcg/0.25mL dose 0 completed Not Available [facility] 12/13/2024 08:32:28 COVID-19, mRNA, LNP-S, PF, 30 mcg/0.3 mL dose 1 completed Not Available [facility] 12/13/2024 08:32:28 Influenza, split virus, quadrivalent, PF 2 completed Not Available [facility] 12/13/2024 08:32:28 COVID-19, mRNA, LNP-S, bivalent, PF, 30 mcg/0.3 mL dose 2 completed Not Available [facility] 12/13/2024 08:32:28 Influenza, split virus, quadrivalent, PF 2 completed Not Available [facility] 12/13/2024 08:32:28 Influenza, recombinant, quadrivalent, PF 4 completed Not Available [facility] 12/13/2024 08:32:28 COVID-19, mRNA, LNP-S, PF, 100 mcg/0.5mL dose or 50 mcg/0.25mL dose 1 completed Gilajez Schuster [facility] 12/13/2024 08:38:49 Past Encounters Encounter ID Performer Location Encounter Start Date Encounter Closed Date Diagnosis/Indication Diagnosis SNOMED-CT Code Diagnosis ICD10 Code Diagnosis IMO Codes Diagnosis Note [id number] KEVIN PATTON PA-C [facility] [address] [place] [address] 06/27/2019 11:02:18 06/27/2019 13:46:10 Routine gynecologic examination done 9775895945 9101 Z01.419 Screening for malignant neoplasm of cervix 036407210 Z12.4 Infection screening 2437 09669 Z11.51 [id number] JAIDA ALLEN PA-C [facility] [address] [place] [address] 12/16/2020 14:47:27 12/16/2020 16:38:41 Anemia 708202224 D64.9 Will recheck labs. Await these results. Fatigue 22503343 R53.83 Migraine 74097769 G43.90 9 trial of topamax as directed. We can advance strength as needed. [id number] AAKASH BAIG MD [facility] [address] [place] [address] 05/11/2021 09:09:38 05/11/2021 10:58:11 Dysmenorrhea 702218242 N94.6 Patient has some mild somewhat dysmenorrh [...] in that currently. Abnormal u terine bleeding 8926753920 9100 N93.9 Patient with an episode of [...] will return I will do a biopsy. [id number] AAKASH BAIG MD [facility] [address] [place] [address] 04/12/2022 13:56:49 04/12/2022 15:26:48 Abnormal uterine bleeding 0729507640 9100 N93.9 endometria l bx done. AUB [...] stop while she is on her vacation. 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 Drug therapy finding 309 064983 Z79.890 [id number] cont progestero ne and estrogen patch per her [facility] Concerns Section Related Observation LastModified by Organization Detai ls LastModified Time None Recorded Concern Status LastModified by Organization Details LastModified Time None Recorded Advance Directives Directive None Recorded Payers Insurance Date Sequence Insurance Name Policy Number Policy Villarreal Covered Member ID Villarreal Member ID Guarantor Name 12/13/2024 1 JAMES (PPO) [id number] Albaro Lugo [id number] Marielena Neal Parish 04/27/2022 1 [place] [id number] Marielena Lugo [id number] Marielena Neal Parish 12/11/2024 1 [employer] (POS) [id number] Abbe Lugo [id number] Marielena Neal Parish Notes Date Note Type Note Provider Name [...] is all perimenopausal KEVIN PATTON PA-C [address] [place], [address], [facility] 06/27/2019 12:36:34 12/16/2020 text/html Pt comes in to get established. She has been fatigued lately, and had some labs that showed a low ferritin but nothing else. She eats and sleeps well. 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 Her stress level is much lower than it used to be when she was working.She does have migraines. These can be debilitating. SHe is interested in trying topamax for prevention. JAIDA ALLEN PA-C [address] [place], [phone], [facility] 12/19/2020 22:33:16 05/11/2021 text/html 46 y/o ( 2) referral from Merly here today for an ultrasound and possible EMB for AUB. Merly also mentioned to discuss ablation. Reference pt. case 04/30/2021. 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 PT had some severe pain [...] is her GI physician. AAKASH BAIG MD [address] [place] [address], [phone], [facility] 05/11/2021 10:25:55 04/12/2022 text/html 47 y/o here today for EMB for AUB. per patient case 04/11/2022- patient having bleeding for one month. same issue as when she was seen 05/11/2021.Provera given to patient- has not started yet because she thought she was slowing down on the bleeding. 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 Patient was taking Vitrex and assuming that [...] a functional medicine doctor. AAKASH BAIG MD [facility] [place], [phone], [facility] 04/12/2022 14:42:32 12/13/2024 text/html est carePediatrician sees [facility]--was rec to start statin. however labs are--cholesterol--cho l 220HDL 77, LDL 127, TG 67apo a normalhas had cardiac calcium score that was low/normal. she has severe fatigueanemia with macrocyticfolic acid highferritin lowstarted an iron. 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 not sure if really needs it anymore LAURA BAUGH MD [address] [place], [phone], [facility] 12/13/2024 09:35:20 OBGyn Episode No OBEpisode recorded.
== END 2025-02-24 23:59 | disposition home or self-care (01) ==
LOC: RAD 07:39
PROVIDERS: PCP Nurse Practitioner Family; Visit Provider Obstetrics & Gynecology
DX: N93.9 Abnormal uterine and vaginal bleeding, unspecified (principal)
CPT/HCPCS: 76830